=== PATIENT | female | born 1990 | race Caucasian/White ===

== ENCOUNTER 2017-07-01 17:18 | Emergency (ER) | payer SELFPAY ==
[~2017-07-01] VITALS: Ht 177.8 cm; Wt 105.7 kg
[~2017-07-01 17:18] MED LIST: AC325T PO; AC500T PO; ACHD5005 PO; ACHYD1T PO; ALPR.25T PO; ALPR0.5T PO; AMOX500C2 PO; AZIT-21; BENZ56AE TP; BSP5T PO; CEPH-38 PO; CLIN300C11 PO; CLON0.5T3 PO; CLON1TAB36; CODE-54 PO; CPR500T PO; CYCL10TA9 PO; DBC1O30 TOP; DICY10CA26 PO; DIPH25TA82 PO; DOXE10CA PO; DVL500TEC; FAMO20TA5 PO; FLUC200T45 PO; FRS325T PO; HYDR-3816 PO; HYDR-757 PO; IBP600T1 PO; IBP800T PO; LEVO500T69 PO; METR500T PO; MTR250T PO; Metronidazole PO; NAPR-243 PO; NITR-65 PO; NITR100C3 PO; ONDA-42 SL; ONDA8TAB6 PO; PREN-115 PO; PREN1TAB14; PREN1TAB14 PO; PREN1TAB39 PO; PS30T PO; TRAM50TA2 PO
--- NOTE | 2017-07-01 18:53 | Diagnostic Imaging Report ---
INDICATION: History of torn tendon and ankle post surgical repair. Tripped over a dog and heard a pop, now unable to bear weight. TECHNIQUE: Three views of the left ankle. CORRELATION STUDY: None. FINDINGS: The bony alignment is anatomic. The talar dome is intact. The ankle mortise is maintained. There is no acute fracture or dislocation. Soft tissues are unremarkable. IMPRESSION: Stable, negative appearance of the left ankle. Dictated by: Dictated on workstation # [id number]
--- NOTE | 2017-07-01 18:53 | Diagnostic Imaging Report ---
INDICATION: Left foot pain, history of previous tendon repair. EXAM: AP, oblique, lateral views of the left foot are obtained. FINDINGS: There is no fracture or acute bony abnormality seen. Joint spaces are unremarkable. IMPRESSION: Negative left foot. Dictated by: Dictated on workstation # [id number]
--- NOTE | 2017-07-01 19:19 | ED Lower Extremity ---
General Chief Complaint: Lower Extremity Stated Complaint: L ANKLE INJ Nursing Triage Note: pt had torn tendon in left ankle. repaired initially in november by dr benitez. pt reports she had 2nd left ankle surgery in april. recently started bearing weight. she tripped over her dog today et felt something pop. reports she cannot bear weight. Nursing Sepsis Screen: No Definite Risk Source: patient Exam Limitations: no limitations History of Present Illness Time seen by provider: 18:15 Initial Comments This 27-year-old woman presents to the emergency room with complaints of left ankle and foot pain after tripping over her dog at home. She was picking up some boxes of clothing when she stepped backward tripping over her dog. She reports her left ankle "snapped" at that time. Patient reports having multiple ankle surgeries over the past year to repair ligaments. She was in a boot and using a scooter until about [address] Benitez is her orthopedic provider. She is tearful. She has not yet taken any medications for this injury. she denies any other injury with this incident. Allergies and Home Medications Allergies Coded Allergies: No Known Drug Allergies (Unverified , 10/06/16) Home Medications Alprazolam 0.5 Mg Tablet, 0.5 MG PO PRN PRN for ANXIETY, (Reported) Hydrocodone/Acetaminophen 1 Each Tablet, 1 EACH PO, (Reported) Hydrocodone/Acetaminophen 1 Each Tablet, 1 EACH PO Q4H PRN for PAIN, #14 Prescribed by: ANTONI FERNANDO on 07/01/171928 Constitutional: no symptoms reported EENTM: no symptoms reported Respiratory: no symptoms reported Cardiovascular: no symptoms reported Gastrointestinal: no symptoms reported Genitourinary: no symptoms reported Musculoskeletal: see HPI Skin: no symptoms reported Psychiatric/Neurological: No Symptoms Reported Past Ramnofy-Bbolzj-Noykyh Hx Patient Social History Alcohol Use: Denies Use Recreational Drug Use: No (SMOKES 1PPD) Smoking Status: Current Everyday Smoker Type Used: Cigarettes Former Smoker/When Quit: April 01, 2014 2nd Hand Smoke Exposure: No Recent Foreign Travel: No Contact w/Someone Who Travel: No Recent Infectious Disease Expo: No Recent Hopitalizations: No Immunizations Up To Date Tetanus Booster (TDap): Less than 5yrs PED Vaccines UTD: Yes Seasonal Allergies Seasonal Allergies: Yes Surgeries HX Surgeries: Yes (6 laproscopic surg, lymphnodectomy) Surgeries: Appendectomy, Gallbladder, Orthopedic (left foot/ankle), Tonsillectomy Respiratory Hx Respiratory Disorders: No Respiratory Disorders: Pneumonia Cardiovascular Hx Cardiac Disorders: No Neurological Hx Neurological Disorders: No Reproductive System Hx Reproductive Disorders: No Sexually Transmitted Disease: No HIV/AIDS: No Female Reproductive Disorders: Menstrual Problems, Endometriosis, Polycystic Ovarian Dis Genitourinary Hx Genitourinary Disorders: No Genitourinary Disorders: Kidney Infection, UTI-Chronic Gastrointestinal Hx Gastrointestinal Disorders: No (OCC REFLUX) Gastrointestinal Disorders: Gall Bladder Disease Musculoskeletal Hx Musculoskeletal Disorders: Yes (left ankle/foot injuries) Musculoskeletal Disorders: Chronic Back Pain Endocrine Hx Endocrine Disorders: No HEENT HX ENT Disorders: No Loss of Vision: Denies Hearing Impairment: Denies Cancer Hx Cancer: No Psychosocial Hx Psychiatric Problems: Yes Behavioral Health Disorders: Anxiety Integumentary HX Skin/Integumentary Disorder: No Blood Transfusions Hx Blood Disorders: No Adverse Reaction to a Blood Tr: No (N/A) Family Medical History Family Medial History: Alcoholism G8 BROTHER Asthma G8 BROTHER Diabetes mellitus 19 FATHER G8 BROTHER Drug abuse G8 BROTHER G8 BROTHER Hypercholesterolemia 19 FATHER Hypertension 19 FATHER G8 BROTHER Thyroid disease 19 MOTHER No Family History of: AIDS Abdominal aortic aneurysm [place]'s disease Alzheimer's disease Aphasia Arthritis Cancer of mouth Cardiovascular disease Cataracts Colon cancer Completed stroke Congenital disease Congenital heart disease Coronary thrombosis Cystic fibrosis Deafness or hearing loss Dementia Dysphasia Fibrocystic disease of breast Gastroenteritis Glaucoma Headache disorder Infertility Kidney disease Myocardial infarction Neoplasm Not obtainable due to adoption Osteoporosis Parkinson's disease Prostate cancer Psychosocial problem Respiratory disorder Seizure disorder Severe allergy Tuberculosis Visual disorder Physical Exam Vital Signs Vital Sign - Last 12Hours 07/01/17 17:55 Temp 97.8 Pulse 95 Resp 18 B/P (MAP) 125/84 Capillary Refill : Less Than 3 Seconds General Appearance: WD/WN, mild distress HEENT: normal ENT inspection Respiratory: no respiratory distress Legs: left leg non-tender, left leg normal inspection, left leg normal range of motion, left leg no evidence of injury Knees: left knee non-tender, left knee normal inspection, left knee normal range of motion, left knee no evidence of injury Ankles: left ankle bone tenderness, left ankle limited range of motion, left ankle pain, left ankle swelling Feet: left foot bone tenderness, left foot limited range of motion, left foot pain, left foot swelling Neurologic/Tendon: normal sensation, normal motor functions, normal tendon functions Neurologic/Psychiatric: pelletizer II-XII nml as tested, no motor/sensory deficits, alert, normal mood/affect, oriented x 3 Skin: normal color, warm/dry Progress/Results/Core Measures Results/Orders My Orders Orders - ANTONI LACKEY MD Foot, Left, 3 Views (07/01/17 18:23) Hydrocodone/Apap 5/325 Tablet (Lortab 5 (07/01/17 19:30) Ondansetron Oral Dissolve Tab (Zofran (07/01/17 19:45) Vital Signs/I&O Vital Sign - Last 12Hours 07/01/17 07/01/17 07/01/17 17:55 19:39 19:39 Temp 97.8 97.8 97.8 Pulse 95 81 Resp 18 18 B/P (MAP) 125/84 Pulse Ox 99 O2 Delivery Room Air Blood Pressure Mean: 98 Progress Note : Progress Note X-rays demonstrated no fractures. Patient was nauseated from pain. Zofran was given. Patient was offered a Toradol injection but declined. Hydrocodone was given as an alternative. Diagnostic Imaging Diagonstic Imaging: Xray Plain Films/CT/US/NM/MRI: other (left foot) Comments x-ray of the left foot the by me and report reviewed. See report below: NAME: [facility]O [facility] REC#: [id number] PT STATUS: REG ER : 1990 PHYSICIAN: ANTONI LACKEY MD ADMIT DATE: 07/01/17/ER Signed Date of Exam: 07/01/17 FOOT, LEFT, 3 VIEWS INDICATION: Left foot pain, history of previous tendon repair. EXAM: AP, oblique, lateral views of the left foot are obtained. FINDINGS: There is no fracture or acute bony abnormality seen. Joint spaces are unremarkable. IMPRESSION: Negative left foot. Dictated by: Dictated on workstation # [id number] Dict: 07/01/171849 Trans: 07/01/171902 Interpreted by: THANH DAO MD Electronically signed by: THANH DAO MD 07/31/17 1903 Diagonstic Imaging: Xray Plain Films/CT/US/NM/MRI: ankle Comments X-ray of the left ankle viewed by me and report reviewed. See report below: NAME: ZEHRA YO [facility] REC#: [id number] PT STATUS: REG ER : 1990 PHYSICIAN: CHARANJIT RUST ADMIT DATE: 07/01/17/ER Draft Date of Exam:07/01/17 ANKLE, LEFT, 3 VIEWS INDICATION: History of torn tendon and ankle post surgical repair. Tripped over a dog and heard a pop, now unable to bear weight. TECHNIQUE: Three views of the left ankle. CORRELATION STUDY: None. FINDINGS: The bony alignment is anatomic. The talar dome is intact. The ankle mortise is maintained. There is no acute fracture or dislocation. Soft tissues are unremarkable. IMPRESSION: Stable, negative appearance of the left ankle. Dictated on workstation # [id number] Dict: 07/01/17 1849 Trans: 07/01/17 1852 [id number] Interpreted by: MERI PARHAM DO Departure Impression Impression: Primary Impression: Left ankle sprain Qualified Codes: S93.402A - Sprain of unspecified ligament of left ankle, initial encounter Additional Impression: Sprain of left foot Qualified Codes: S93.602A - Unspecified sprain of left foot, initial encounter Disposition: HOME, SELF-CARE Condition: Improved Departure-Patient Inst. Decision time for Depature: 19:15 Referrals: BRAXTON ANDERSON DO (PCP/Family) Primary Care Physician JENIFER BENITEZ MD Patient Instructions: Sprain (DC) Add. Discharge Instructions: Rest, icing in 20 minute intervals, elevation, and compressive wrapping should help with pain and swelling. Use your boot to protect the ankle until follow- up with your orthopedic doctor. Keep your appointment this week. Use your scooter or crutches as needed to avoid weightbearing. Use ibuprofen up to 800 mg every 8 hours as needed for pain. Add hydrocodone for pain not controlled by ibuprofen. All discharge instructions reviewed with patient and/or family. Voiced understanding. Scripts Hydrocodone/Acetaminophen (Hydrocodon -Acetaminophen 5-325) 1 Each Tablet 1 EACH PO Q4H Y for PAIN, #14 TAB Prov: ANTONI LACKEY MD 07/01/17 Copy Copies To 1: JENIFER BENITEZ MD, JOSHUA T MD Jul 01, 2017 19:19
[2017-07-01] MEDS ORDERED: HYDR-3812 PO (19:29)
[2017-07-01] MEDS ORDERED: HYDROcodone/APAP 5 MG/325 MG (LORTAB) TAB PO ONE (19:30)
[2017-07-01 19:39] VITALS: BP 131/73
[2017-07-01] MEDS ORDERED: ONDANSETRON 4 MG (ZOFRAN) ORAL DISSOLVE TAB SL ONE (19:45)
== END 2017-07-01 19:39 | disposition home or self-care (01) ==
LOC: EDUNIT# 17:18 → ER 17:20
DX: S93.402A Sprain of unspecified ligament of left ankle, initial encounter (principal); M54.9 Dorsalgia, unspecified; G89.29 Other chronic pain; F41.9 Anxiety disorder, unspecified; F17.210 Nicotine dependence, cigarettes, uncomplicated; Z82.49 Family history of ischemic heart disease and other diseases of the circulatory system; Z90.49 Acquired absence of other specified parts of digestive tract; W01.0XXA Fall on same level from slipping, tripping and stumbling without subsequent striking against object, initial encounter; Y92.009 Unspecified place in unspecified non-institutional (private) residence as the place of occurrence of the external cause
CPT/HCPCS: 73610; 73630; 99283

== ENCOUNTER → 2017-09-27 | Outpatient (CLI) | payer MEDICAID ==
[~2017-09-27] MED LIST changes: +HYDR-3812 PO
--- NOTE | 2017-09-27 17:18 | Diagnostic Imaging Report ---
INDICATION: Pelvic pain. FINDINGS: Uterus measures 8.6 x 5.7 x 4.7 cm and appears nonfocal. No identifiable myometrial mass. The right ovary is obscured from visualization with right pelvic shadowing bowel gas. The left ovary measures 3.1 x 2.6 x 3.0 cm and shows physiologic appearing follicles with no suspicious lesion. Color Doppler flow to the right adnexa appears normal. The endometrium is homogeneous but thickened at 1.2 cm likely owing to the stage of menstrual cycle. IMPRESSION: Obscuration of the right ovary by pelvic bowel gas. No pathological finding at this exam identified. Dictated on workstation # [id number]
== END ==
LOC: RAD 14:34
PROVIDERS: ATTEND Obstetrics & Gynecology
DX: R10.2 Pelvic and perineal pain (principal); N94.19 Other specified dyspareunia; R53.83 Other fatigue; K59.00 Constipation, unspecified; L68.0 Hirsutism; R63.5 Abnormal weight gain; R63.1 Polydipsia; R35.8 Other polyuria
CPT/HCPCS: 76830; 76856

== ENCOUNTER → 2017-11-07 | Outpatient (CLI) | payer MEDICAID ==
[~2017-11-07] MED LIST changes: +GADOBUTROL 15 MMOL/15 ML (GADAVIST) VIAL IV ONE
--- NOTE | 2017-11-07 18:17 | Diagnostic Imaging Report ---
PROCEDURE: MR imaging of the brain with and without contrast. TECHNIQUE: Multiplanar, multisequence MR imaging of the brain was performed with and without contrast. INDICATION: Headache and visual changes for four months. Patient went to eye doctor and was told she has pressure on the optic nerve. FINDINGS: The ventricles and sulci are within normal limits. There is no hydrocephalus. There is no midline shift. There is no intracranial mass, hemorrhage, or extra-axial fluid collection. There are no areas of diffusion restriction appreciated to suggest an acute CVA. The frontal, ethmoid, sphenoid, and maxillary sinuses are clear. The mastoid air cells are clear. There are no abnormal areas of contrast enhancement. The globes and intraorbital structures are unremarkable. The central arterial and dural venous sinus flow voids are preserved. IMPRESSION: Unremarkable MRI brain. Dictated by: Dictated on workstation # [id number]
== END ==
LOC: RAD 17:04
PROVIDERS: ATTEND Nurse Practitioner Family
DX: H53.8 Other visual disturbances (principal); H47.099 Other disorders of optic nerve, not elsewhere classified, unspecified eye; R51 Headache
CPT/HCPCS: 70553

== ENCOUNTER 2018-06-11 10:54 | Outpatient (RCR) | payer MEDICAID ==
[2018-06-10 10:57] VITALS: BP 122/85
[2018-06-10] MEDS: LIDOCAINE 1% INJ 20 ML 20 ML VIAL INJ SCH (11:19)
[2018-06-10] MEDS: cefTRIAXone 1 GM (ROCEPHIN) VIAL IM SCH (11:19)
[~2018-06-11] VITALS: Ht 175.3 cm; Wt 103.4 kg
[~2018-06-11 10:54] MED LIST changes: -GADOBUTROL 15 MMOL/15 ML (GADAVIST) VIAL IV ONE; +HYDR-34 PO; -HYDR-3812 PO; -HYDR-3816 PO; +LIDOCAINE 1% INJ 20 ML 20 ML VIAL ONE
[2018-06-11] MEDS: cefTRIAXone 1 GM (ROCEPHIN) VIAL IM SCH (11:01)
[2018-06-11] MEDS: LIDOCAINE 1% INJ 20 ML 20 ML VIAL INJ SCH (11:01)
[2018-06-11 11:04] VITALS: BP 132/89
== END 2018-06-11 11:23 | disposition home or self-care (01) ==
LOC: SDC 10:54
PROVIDERS: ATTEND Nurse Practitioner Family
DX: H66.93 Otitis media, unspecified, bilateral (principal)
CPT/HCPCS: 96372

== ENCOUNTER → 2018-08-21 | Outpatient (CLI) | payer MEDICAID ==
[~2018-08-21] MED LIST changes: +AMOX-358 PO; +CEFU500T63 PO; -LIDOCAINE 1% INJ 20 ML 20 ML VIAL ONE; +ONDA4TAB8 SL
--- NOTE | 2018-08-21 14:38 | Diagnostic Imaging Report ---
INDICATION: survey. TECHNIQUE: Multiple real-time grayscale images were obtained over the gravid uterus. COMPARISON: None. FINDINGS: There are no prior studies available for comparison. This study was technically difficult due to the patient's body habitus. There is a single live fetus in cephalic presentation. heart motion was noted and a rate of 160 bpm was recorded. There are no abnormalities identified, but the four-chamber heart view is less than optimal. The growth parameters are fairly uniform. The placenta is posterior and there is no previa. The amniotic fluid volume is within normal limits. IMPRESSION: 1. There is a single live fetus of approximately 20 weeks 5 days gestation +/- 1.5 weeks. The EDC is January 03, 2019. 2. There are no abnormalities identified, but the four-chamber heart view is not optimally visualized. I would recommend that a short-term (4-6 week) follow-up exam be performed for further study. 3. The growth parameters are fairly uniform. Biometrical measurements are as follows: Biparietal 4.8 cm, age 20 weeks 3 days. Head circumference 17.7 cm, age 20 weeks 2 days. Abdominal circumference 16.1 cm, age 21 weeks 2 days. Femur length 3.4 cm, age 20 weeks 6 days. Sonographic estimate age: 20 weeks 5 days. Sonographic estimated date of delivery: 01/03/19. Estimated Weight: 387 gm (+/- 56 gm). LMP percentile: 73%. heart rate: 160 beats per minute. number: 1 of 1. Dictated by: Dictated on workstation # [id number]
== END ==
LOC: RAD 10:08
PROVIDERS: ATTEND Obstetrics & Gynecology
DX: Z36.89 Encounter for other specified antenatal screening (principal); Z3A.20 20 weeks gestation of pregnancy
CPT/HCPCS: 76805

== ENCOUNTER → 2018-10-03 | Outpatient (CLI) | payer MEDICAID ==
[~2018-10-03] VITALS: Ht 177.8 cm; Wt 112.0 kg
[~2018-10-03] MED LIST changes: +LIDOCAINE 1% INJ 20 ML 20 ML VIAL INJ ONE; +cefTRIAXone 1,000 MG/2.86 ml vial (IM ONLY) IM ONE
[2018-10-03 12:06] VITALS: BP 121/67
== END ==
LOC: SDC 11:30
PROVIDERS: ATTEND Nurse Practitioner Family
DX: J40 Bronchitis, not specified as acute or chronic (principal); R06.00 Dyspnea, unspecified
CPT/HCPCS: 96372

== ENCOUNTER 2018-10-31 08:36 | Outpatient (CLI) | payer MEDICAID ==
[~2018-10-31] VITALS: Ht 179.1 cm; Wt 117.0 kg
[~2018-10-31 08:36] MED LIST changes: -LIDOCAINE 1% INJ 20 ML 20 ML VIAL INJ ONE; -cefTRIAXone 1,000 MG/2.86 ml vial (IM ONLY) IM ONE
[2018-10-31 09:00] VITALS: BP 134/62
[2018-10-31 09:20] VITALS: BP 120/65
--- NOTE | 2018-10-31 11:11 | Diagnostic Imaging Report ---
INDICATION: Maternal fall. TECHNIQUE: The fetus was observed by the software packager for purposes of a nonstress biophysical profile evaluation. FINDINGS: Intrauterine is currently in a cephalic presentation. The placenta is along the posterior lateral aspect without evidence for previa. cardiac activity at 153 beats per minute. Normal amount of amniotic fluid with an index at 16.14 cm. Biophysical Profile Scoring: breathin Body movement: 2 tone: 2 Amniotic fluid: 2 Total BPP Score: 8/8 IMPRESSION: 1. Normal biophysical profile score. Dictated by: Dictated on workstation # [id number]
[2018-10-31] MEDS ORDERED: FLU QUADRIvalent (5+ YOA) 2018-2019 (AFLURIA) 0.5 ML IM ONE (14:30)
--- NOTE | 2018-11-03 16:33 | Physician Query-Final Dx ---
ROMAIN LINDO 11/03/18 1633: Clinic Account Progress/Dx Physician Query: Please give diagnosis Date of Service Oct 31, 2018 at 08:36 JENIFER MEDINA DO 11/04/18 1027: Clinic Account Progress/Dx DIAGNOSIS: Diagnosis 30 week IUP Fall in ROMAIN LINDO Nov 03, 2018 16:33 JENIFER MEDINA DO Nov 04, 2018 10:27
== END 2018-10-31 13:08 | disposition home or self-care (01) ==
LOC: WSo 08:36 → LDRP 08:38 → WS 12:25 → WSo 13:08
PROVIDERS: ATTEND Obstetrics & Gynecology
DX: Z04.3 Encounter for examination and observation following other accident (principal); Z3A.30 30 weeks gestation of pregnancy
CPT/HCPCS: 76819; 99213

== ENCOUNTER 2018-12-03 13:10 | Outpatient (CLI) | payer MEDICAID ==
[~2018-12-03] VITALS: Ht 179.1 cm; Wt 116.1 kg
--- NOTE | 2018-12-03 13:15 | NUR ---
ZEHRA YO presented to unit via W/C from ED, accompanied by STAFF, with c/o WATER BROKE;CONTRACTIONS. ZEHRA YO weighed, gowned, voided, and to bed. EFHM and TOCO applied, VS taken. ZEHRA YO oriented to bed controls, call light, TV, heat, and A/C controls.
[2018-12-03 13:25] VITALS: BP 142/68
[2018-12-03 13:27] LABS: BILIRUBIN,URINE NEGATIVE (NEGATIVE); CLARITY,URINE SLIGHTLY CLOUDY; COLOR,URINE YELLOW; GLUCOSE, URINE (UA) NEGATIVE (NEGATIVE); KETONES,URINE 1+ (NEGATIVE); LEUKOCYTE ESTERASE ,URINE 2+ (NEGATIVE); NITRITE,URINE NEGATIVE (NEGATIVE); PH,URINE 6 (5-9); PROTEIN,URINE 2+ (NEGATIVE); UROBILINOGEN,URINE NORMAL (NORMAL)
[2018-12-03 13:53] LABS: BACTERIA,URINE MODERATE /HPF; WBC,URINE 25-50 /HPF
[2018-12-03] MEDS ORDERED: FLU QUADRIvalent (5+ YOA) 2018-2019 (AFLURIA) 0.5 ML IM ONE (14:00)
--- NOTE | 2018-12-03 14:05 | NUR ---
DR MEDINA NOTIFIED OF PATIENT STATUS AND BP, UA RESULTS, AND PATIENT C/O. NEW ORDERS RECEIVED.
[2018-12-03] MEDS ORDERED: D5 LR IV SOLUTION 1,000 ML IV SCH ×2 (14:15)
[2018-12-03 14:30] VITALS: BP 127/70
--- NOTE | 2018-12-03 14:40 | NUR ---
LAB AT BEDSIDE.
[2018-12-03 14:57] LABS: BASOPHILS % (AUTO) 0 % (0-10); EOSINOPHILS # (AUTO) 0.1 10^3/uL (0.0-0.3); EOSINOPHILS % (AUTO) 1 % (0-10); HEMATOCRIT 32 % (35-52); HEMOGLOBIN 10.6 G/DL (11.5-16.0); LYMPHOCYTES # (AUTO) 1.6 X 10^3 (1.0-4.0); LYMPHOCYTES % (AUTO) 11 % (12-44); MEAN CORPUSCULAR HEMOGLOBIN 31 PG (25-34); MEAN CORPUSCULAR HGB CONC 33 G/DL (32-36); MEAN CORPUSCULAR VOLUME 93 FL (80-99); MONOCYTES # (AUTO) 0.7 X 10^3 (0.0-1.0); MONOCYTES % (AUTO) 5 % (0-12); NEUTROPHILS # (AUTO) 12.2 X 10^3 (1.8-7.8); NEUTROPHILS % (AUTO) 84 % (42-75); PLATELET COUNT 437 10^3/uL (130-400); RED BLOOD COUNT 3.46 10^6/uL (4.35-5.85); RED CELL DISTRIBUTION WIDTH 13.1 % (10.0-14.5); WHITE BLOOD COUNT 14.6 10^3/uL (4.3-11.0)
[2018-12-03 15:12] LABS: BAND NEUTROPHILS 3 %; BASOPHILS % (MANUAL) 0 %; EOSINOPHILS % (MANUAL) 1 %; LYMPHOCYTES % (MANUAL) 13 %; MONOCYTES % (MANUAL) 4 %; NEUTROPHILS % (MANUAL) 79 %; RBC MORPH NORMAL
[2018-12-03 15:21] LABS: ALANINE AMINOTRANSFERASE 10 U/L (0-55); ALBUMIN 3.3 GM/DL (3.2-4.5); ALKALINE PHOSPHATASE 81 U/L (40-136); BILIRUBIN,TOTAL 0.3 MG/DL (0.1-1.0); BUN/CREATININE RATIO 13; CARBON DIOXIDE 21 MMOL/L (21-32); CHLORIDE 104 MMOL/L (98-107); CREATININE SERUM 0.61 MG/DL (0.60-1.30); GFR ESTIMATED > 60; GLUCOSE 90 MG/DL (70-105); POTASSIUM 3.9 MMOL/L (3.6-5.0); SODIUM 137 MMOL/L (135-145); TOTAL PROTEIN 6.3 GM/DL (6.4-8.2); URIC ACID 4.3 MG/DL (2.6-7.2)
--- NOTE | 2018-12-03 15:30 | NUR ---
FULIDS DECREASED TO 125ML/HR. 500 CC FLUID BOLUS COMPLETE.
--- NOTE | 2018-12-03 15:50 | NUR ---
DR MEDINA NOTIFIED OF LAB RESULTS. NEW ORDERS RECEIVED.
--- NOTE | 2018-12-03 16:30 | NUR ---
out of WS via ambulation to home self care via private vehicle with d/c instructions in hand.
--- NOTE | 2018-12-08 07:58 | Physician Query-Final Dx ---
SABRA KO 12/08/18 0758: Clinic Account Progress/Dx Physician Query: Please give a diagnosis and include weeks of gestation thank you Date of Service Dec 03, 2018 at 13:10 JENIFER MEDINA DO 12/13/18 1238: Clinic Account Progress/Dx DIAGNOSIS: Diagnosis 35 week IUP UTI SABRA KO Dec 08, 2018 07:58 JENIFER MEDINA DO Dec 13, 2018 12:38
== END 2018-12-03 16:30 | disposition home or self-care (01) ==
LOC: WSo 13:10 → LDRP 13:16 → WSo 16:30
PROVIDERS: ATTEND Obstetrics & Gynecology
DX: O23.43 Unspecified infection of urinary tract in pregnancy, third trimester (principal); Z3A.35 35 weeks gestation of pregnancy
CPT/HCPCS: 36415; 80053; 81000; 82570; 84156; 84550; 85007; 85027; 87077; 87088; 87186; 96360; 96361; 99214

== ENCOUNTER 2018-12-22 09:20 | Outpatient (CLI) | payer MEDICAID ==
[~2018-12-22] VITALS: Ht 179.1 cm; Wt 116.1 kg
--- NOTE | 2018-12-22 09:35 | NUR ---
Arrived to unit via wheelchair from registration by family member. Pt c/o "contractions since 0800." pt breathing with contractions. Wt obtained and to room 318. Gowned and urine sample obtained. to bed and monitors on. Oriented to room, call light and surroundings. bed controls explained.
[2018-12-22 09:40] VITALS: BP 130/80
[2018-12-22] MEDS ORDERED: CEPH-507 PO (09:57)
[2018-12-22] MEDS ORDERED: FLU QUADRIvalent (5+ YOA) 2018-2019 (AFLURIA) 0.5 ML IM ONE (10:00)
--- NOTE | 2018-12-22 10:15 | NUR ---
Dr Rock called and notified of pt arrival, gestation, c/o, assessment, contractions, fhr pattern and sve. Order to watch pt on monitor. plan of care reviewed with pt. saman stanley at bedside.
[2018-12-22 10:30] VITALS: BP 137/72
[2018-12-22 11:00] VITALS: BP 134/80
[2018-12-22 12:00] VITALS: BP 124/68
--- NOTE | 2018-12-22 13:05 | NUR ---
Discharge instructions explained, signed and copy to pt. pt verbalized understanding of instructions and denied questions. Pt discharged to home. Ambulates downstairs to private vehicle with belongings in hand.
== END 2018-12-22 13:05 | disposition home or self-care (01) ==
LOC: WSo 09:20 → LDRP 09:24 → WSo 13:05
PROVIDERS: ATTEND Obstetrics & Gynecology
DX: O47.1 False labor at or after 37 completed weeks of gestation (principal); Z3A.38 38 weeks gestation of pregnancy
CPT/HCPCS: 99213

== ENCOUNTER 2018-12-26 10:29 | Inpatient (IN) | payer MEDICAID | END 2018-12-27 18:05 | disposition home or self-care (01) | LOC: WSo 10:29 → LDRP 10:30 → WSo 14:34 → LDRP 10:50 ==

== ENCOUNTER 2019-03-31 05:40 | Outpatient (CLI) | payer MEDICAID ==
[~2019-03-31] VITALS: Ht 179.1 cm; Wt 105.3 kg
[~2019-03-31 05:40] MED LIST changes: +Benzocaine/Menthol TP; +CEPH-507 PO; +DOCU100C37 PO; +FERR325T18 PO; +IBUP-844 PO; +PNV1TABL67 PO
[2019-03-31] MEDS ORDERED: bcp PO (10:38)
[2019-03-31] MEDS ORDERED: TRAZ-189 PO (10:38)
[2019-03-31] MEDS ORDERED: DESV100T PO (10:38)
== END 2019-03-31 10:45 | disposition home or self-care (01) ==
LOC: PREOP 05:40
PROVIDERS: ATTEND Surgery
DX: Z01.818 Encounter for other preprocedural examination (principal)

== ENCOUNTER 2019-04-02 08:51 | Day surgery (SDC) | payer MEDICAID ==
[~2019-04-02] VITALS: Ht 179.1 cm; Wt 105.3 kg
[2019-04-02] VITALS (10 sets, daily range): BP systolic 113–138; BP diastolic 70–92
[~2019-04-02 08:51] MED LIST changes: +DESV100T PO; +TRAZ-189 PO; +bcp PO
[2019-04-02] MEDS: LACTATED RINGERS 1,000 ML IV PRN ×2 (09:25→11:03)
[2019-04-02] MEDS ORDERED: LIDOCAINE 1% INJ 20 ML 20 ML VIAL ONE (09:32)
[2019-04-02] MEDS ORDERED: BUP/EPI 0.5% 1:200,000 (SENSORCAINE) 30 ML VIAL ONE (09:32)
[2019-04-02] MEDS ORDERED: MIDAZOLAM 2 MG/2 ML (VERSED) VIAL ONE (09:42)
[2019-04-02] MEDS ORDERED: fentaNYL INJECTION 100 MCG/2 ML AMP ONE (09:42)
--- NOTE | 2019-04-02 09:43 | Progress Note-Pre Operative ---
Pre-Operative Progress Note H&P Reviewed The H&P was reviewed, patient examined and no changes noted. Date Seen by Provider: April 02, 2019 Time Seen by Provider: 09:43 Date H&P Reviewed: April 02, 2019 Time H&P Reviewed: 09:43 Pre-Operative Diagnosis: left posterior auricular mass KIAH LEON DO April 02, 2019 09:43
[2019-04-02] MEDS ORDERED: ceFAZolin 2 GM IV Premixed 50 ML IV ONE (09:45)
[2019-04-02] MEDS ORDERED: ceFAZolin 2 GM IV Premixed 50 ML ONE (09:49)
[2019-04-02] MEDS ORDERED: proPOfol 200 MG/20 ML (DIPRIVAN) VIAL IV ONE (10:30)
[2019-04-02] MEDS ORDERED: ONDANSETRON 4 MG/2 ML (SDV) Z0FRAN ONE (10:30)
[2019-04-02] MEDS ORDERED: LIDOCAINE PF 2% 5 ML (XYLOCAINE) VIAL ONE (10:30)
[2019-04-02] MEDS ORDERED: SEVOFLURANE (ULTANE) 15 ML INHAL SOLN ONE (10:30)
--- NOTE | 2019-04-02 10:40 | Progress Note-Post Operative ---
Post-Operative Progess Note Surgeon (s)/Acupressurist (s) Surgeon KIAH LEON DO Acupressurist: na Pre-Operative Diagnosis left posterior auricular mass Post-Operative Diagnosis same Procedure & Operative Findings Date of Procedure 04/02/19 Procedure Performed/Findings excision post auricular mass 1x2 cm Anesthesia Type gen Estimated Blood Loss Estimated blood loss (mL): min Specimens/Packing Specimens Removed mass KIAH LEON DO April 02, 2019 10:40
--- NOTE | 2019-04-02 10:43 | Discharge Inst-Simple/Standard ---
Discharge Inst-Standard Patient Instructions/Follow Up Plan of Care/Instructions/FU: 10-12 days Cathie Activity as Tolerated: Yes Discharge Diet: Regular Diet Other Inst to Patient Follow up Appt: Make appointment for 10-12 days Instructions: No lifting greater than 10 pounds. No strenuous activity. May shower in 24 hours, no tub bath or soaking. Use incentive spirometer at home as directed. No Smoking Skin/Wound Care: Keep area clean and dry. Symptoms to Report: Appetite Changes, Extremity Discoloration, Numbness/Tingling, Swelling Increased , Bleeding Excessive, Eyesight Changes, Pain Increased, Urine Color Change, Constipation(Persistent), Fever over 101 degree F, Pain/Pressure in chest, Urinating Difficulty, Cough Up/Vomit Blood, Heart Beat Irreg/Pounding, Pain/ Pressure in jaw, Vaginal Bleeding Increase, Cramps in feet or legs, Lightheadedness, Pain/Pressure in shoulder, Diarrhea(Persistent), Memory Changes Suddenly, Questions/Concerns, Weight gain consecutive days, Dizziness/ Fainting, Nausea/Vomiting, Shortness of Breath, Weight gain over 2 pounds If questions or concerns contact your physician Or seek help at emergency department. KIAH LEON DO April 02, 2019 10:43
[2019-04-02] MEDS ORDERED: ONDANSETRON 4 MG/2 ML (SDV) Z0FRAN IVP PRN (10:45)
[2019-04-02] MEDS ORDERED: MEPERIDINE (DEMEROL) INJ 50 MG/ML IVP ONE (10:45)
[2019-04-02] MEDS ORDERED: morphine INJ 10 MG/ML 1ML (SYR OR VIAL) IVP ONE (10:45)
[2019-04-02] MEDS ORDERED: morphine INJ 10 MG/ML 1ML (SYR OR VIAL) ONE (10:55)
--- NOTE | 2019-04-02 12:13 | Anesthesia-General Post-Op ---
MAC Patient Condition Mental Status/LOC: Same as Preop Cardiovascular: Satisfactory Nausea/Vomiting: Absent Respiratory: Satisfactory Pain: Controlled Complications: Absent Post Op Complications Complications None Follow Up Care/Instructions Patient Instructions None needed. Anesthesiology Discharge Order Discharge Order Patient is doing well, no complaints, stable vital signs, no apparent adverse anesthesia problems. No complications reported per nursing. AHMET URIBE CRNA April 02, 2019 12:13
--- NOTE | 2019-04-02 18:31 | OPERATIVE REPORT ---
DATE OF SERVICE: 04/02/2019 PREOPERATIVE DIAGNOSIS: Left posterior auricular mass. POSTOPERATIVE DIAGNOSIS: Left posterior auricular mass. PROCEDURE: Excision left posterior auricular mass 1 x 2 cm. SURGEON: Kiah Brand DO ANESTHESIA: General. ESTIMATED BLOOD LOSS: Minimal. COMPLICATIONS: None. INDICATIONS: The patient is a 28-year-old female with a posterior auricular mass. She understands risks and benefits of procedure and wished to proceed with procedure. Consent was signed on the chart. DESCRIPTION OF PROCEDURE: The patient was taken to the operating suite. The area was prepped and draped in sterile fashion. Timeout was performed. Local anesthetic was infiltrated around the mass and a 15 blade scalpel was used to make an elliptical incision around the mass measuring 1 x 2 cm dissect down to the skin and subcutaneous tissues, removing the mass in its entirety in whole. Hemostasis was achieved. The skin was then closed using 5-0 Prolene sutures in a simple interrupted fashion. The area was then washed and dried, sterile bandage was applied. The patient tolerated procedure well without complications, taken to recovery room in stable condition. Job ID: [id number] DocumentID: [id number] Dictated Date: 04/02/2019 13:35:34 Environmental Services Tech Date: 04/02/2019 18:30:16 Dictated By: KIAH BRAND DO
== END 2019-04-02 12:45 | disposition home or self-care (01) ==
LOC: SDC 08:51
PROVIDERS: ATTEND Surgery
DX: L72.0 Epidermal cyst (principal); K21.9 Gastro-esophageal reflux disease without esophagitis; F17.210 Nicotine dependence, cigarettes, uncomplicated; E66.9 Obesity, unspecified; Z68.32 Body mass index [BMI] 32.0-32.9, adult; Z79.899 Other long term (current) drug therapy
CPT/HCPCS: 84703; 87081

== ENCOUNTER 2020-04-05 18:17 | Emergency (ER) | payer SELFPAY ==
[~2020-04-05] VITALS: Ht 177.8 cm; Wt 108.8 kg
[~2020-04-05 18:17] MED LIST changes: -TRAM50TA2 PO; -TRAZ-189 PO; +TRM50T PO; +TRZ50T PO
[2020-04-05] MEDS ORDERED: ALPRAZolam 0.25 MG (XANAX) TAB PO ONE (18:30)
[2020-04-05 18:48] LABS: BASOPHILS % (AUTO) 0 % (0-10); EOSINOPHILS # (AUTO) 0.2 10^3/uL (0.0-0.3); EOSINOPHILS % (AUTO) 1 % (0-10); HEMATOCRIT 42 % (35-52); HEMOGLOBIN 14.2 G/DL (11.5-16.0); LYMPHOCYTES # (AUTO) 2.9 X 10^3 (1.0-4.0); LYMPHOCYTES % (AUTO) 21 % (12-44); MEAN CORPUSCULAR HEMOGLOBIN 30 PG (25-34); MEAN CORPUSCULAR HGB CONC 34 G/DL (32-36); MEAN CORPUSCULAR VOLUME 90 FL (80-99); MEAN PLATELET VOLUME 9.6 FL (7.4-10.4); MONOCYTES # (AUTO) 0.8 X 10^3 (0.0-1.0); MONOCYTES % (AUTO) 6 % (0-12); NEUTROPHILS # (AUTO) 10.1 X 10^3 (1.8-7.8); NEUTROPHILS % (AUTO) 72 % (42-75); PLATELET COUNT 478 10^3/uL (130-400); RED CELL DISTRIBUTION WIDTH 13.4 % (10.0-14.5)
[2020-04-05] MEDS ORDERED: ALPR0.25 PO (18:52)
[2020-04-05] MEDS ORDERED: VENL75TA2 PO (18:52)
--- NOTE | 2020-04-05 18:52 | ED Psychosocial ---
General Chief Complaint: Psych/Social Disorder Stated Complaint: CHEST PAIN,ANXIETY,PANIC ATTACK Source: patient, EMS Exam Limitations: no limitations History of Present Illness Date Seen by Provider: April 05, 2020 Time Seen by Provider: 18:40 Initial Comments To ER by EMS from [facility] in [place] with reports of chest pain. She was they're seeing her therapist when she developed chest pain after becoming anxious. She states she has had anxiety for a long time but it seems to be worse lately. She only takes propranolol for it. Timing/Duration: just prior to arrival Severity: moderate Associated Symptoms: anxiety Allergies and Home Medications Allergies Coded Allergies: No Known Drug Allergies (Unverified , 07/21/18) Home Medications Desvenlafaxine Succinate 100 Mg Tab.er.24h, 100 MG PO DAILY, (Reported) Trazodone HCl 50 Mg Tablet, 50 MG PO HS, (Reported) [bcp] , 1 TAB PO DAILY, (Reported) Patient Home Medication List Home Medication List Reviewed: Yes Review of Systems Constitutional: see HPI EENTM: see HPI Respiratory: no symptoms reported Cardiovascular: no symptoms reported Genitourinary: no symptoms reported Musculoskeletal: no symptoms reported Skin: no symptoms reported Psychiatric/Neurological: See HPI, Anxiety Past Vgtdffd-Bazqom-Wesdns Hx Patient Social History Alcohol Use: Occasionally Uses Recreational Drug Use: Yes (marijuana) Smoking Status: Current Everyday Smoker Type Used: Cigarettes 2nd Hand Smoke Exposure: Yes Recent Foreign Travel: No Contact w/Someone Who Travel: No Recent Hopitalizations: No Immunizations Up To Date Tetanus Booster (TDap): Unknown PED Vaccines UTD: Yes Seasonal Allergies Seasonal Allergies: Yes Past Medical History Surgeries: Yes (6 laproscopic surg, lymphnodectomy, LT ANKLE) Appendectomy, Gallbladder, Orthopedic, Tonsillectomy Respiratory: No Pneumonia Currently Using CPAP: No Currently Using BIPAP: No Cardiac: No Neurological: No Reproductive Disorders: No Female Reproductive Disorders: Menstrual Problems, Endometriosis, Polycystic Ovarian Dis Sexually Transmitted Disease: No HIV/AIDS: No Genitourinary: Yes Kidney Infection, UTI-Chronic Gastrointestinal: Yes (OCC REFLUX) Gastroesophageal Reflux, Gall Bladder Disease Musculoskeletal: Yes (left ankle/foot injuries) Chronic Back Pain Endocrine: No HEENT: No Loss of Vision: Denies Hearing Impairment: Denies Cancer: No Psychosocial: Yes Anxiety, Depression Integumentary: No Blood Disorders: No Adverse Reaction/Blood Tranf: No (N/A) Family Medical History Alcoholism G8 BROTHER Asthma G8 BROTHER Diabetes mellitus 19 FATHER G8 BROTHER Drug abuse G8 BROTHER G8 BROTHER Hypercholesterolemia 19 FATHER Hypertension 19 FATHER G8 BROTHER Thyroid disease 19 MOTHER No Family History of: AIDS Abdominal aortic aneurysm [place]'s disease Alzheimer's disease Aphasia Arthritis Cancer of mouth Cardiovascular disease Cataracts Colon cancer Completed stroke Congenital disease Congenital heart disease Coronary thrombosis Cystic fibrosis Deafness or hearing loss Dementia Dysphasia Fibrocystic disease of breast Gastroenteritis Glaucoma Headache disorder Infertility Kidney disease Myocardial infarction Neoplasm Not obtainable due to adoption Osteoporosis Parkinson's disease Prostate cancer Psychosocial problem Respiratory disorder Seizure disorder Severe allergy Tuberculosis Visual disorder Physical Exam Capillary Refill : Height, Weight, BMI Height: 5'10.50" Weight: 232lbs. 0.6oz. [id number]; 32.8 BMI Method:Stated General Appearance: WD/WN, no apparent distress, other (and tearful, hyperventilating) Neck: non-tender, full range of motion Respiratory: no respiratory distress Cardiovascular: regular rate, rhythm, no murmur Gastrointestinal: normal bowel sounds, non tender, soft Neurologic/Psychiatric: alert, normal mood/affect, oriented x 3 Appearance/Memory: appropriate appearance, appropriate insight Thoughts/Hallucinations: normal thought pattern, no apparent hallucination Skin: normal color, warm/dry Progress/Results/Core Measures Results/Orders Lab Results Laboratory Tests Test 04/05/20 18:35 Range/Units My Orders Orders - JOSE R MENDEZ APRN Troponin I (04/05/20 18:22) Fibrin Degradation Products (04/05/20 18:22) Hcg,Qualitative Serum (04/05/20 18:22) Cbc With Automated Diff (04/05/20 18:22) Comprehensive Metabolic Panel (04/05/20 18:22) Ua Culture If Indicated (04/05/20 18:22) Drug Screen Stat (Urine) (04/05/20 18:22) Alprazolam Tablet (Xanax Tablet) (04/05/20 18:30) Ekg Tracing (04/05/20 18:44) Lipase (04/05/20 18:44) Medications Given in ED Current Medications Medications Dose Ordered Sig/Diamond Route Start Time Stop Time Status Last Admin Dose Admin Alprazolam 0.25 mg ONCE ONCE PO 04/05/20 18:30 04/05/20 18:31 DC 04/05/20 18:29 0.25 MG Departure Impression Primary Impression: Anxiety Disposition: 01 HOME, SELF-CARE Condition: Stable Departure-Patient Inst. Decision time for Depature: 18:49 Referrals: JENIFER MEDINA DO (PCP/Family) Primary Care Physician Patient Instructions: Panic Disorder (DC) Add. Discharge Instructions: 1. Medication as directed. Return to ER for any concerns. Follow-up with your doctor next week. All discharge instructions reviewed with patient and/or family. Voiced un derstanding. Scripts Venlafaxine HCl (Venlafaxine HCl ER) 75 Mg Tab.er.24 75 MG PO DAILY, #30 TAB Prov: JOSE R MENDEZ APRN 04/05/20 JOSE R MENDEZ APRN April 05, 2020 18:51
[2020-04-05 19:01] LABS: ALBUMIN 4.5 GM/DL (3.2-4.5); CHLORIDE 103 MMOL/L (98-107); POTASSIUM 3.7 MMOL/L (3.6-5.0); SODIUM 137 MMOL/L (135-145)
[2020-04-05 19:02] LABS: CALCIUM 10.1 MG/DL (8.5-10.1)
[2020-04-05 19:03] LABS: GLUCOSE 93 MG/DL (70-105); TOTAL PROTEIN 7.5 GM/DL (6.4-8.2)
[2020-04-05 19:04] LABS: CARBON DIOXIDE 20 MMOL/L (21-32)
[2020-04-05 19:05] LABS: BILIRUBIN,TOTAL 0.2 MG/DL (0.1-1.0)
[2020-04-05 19:07] LABS: ALKALINE PHOSPHATASE 77 U/L (40-136); CREATININE SERUM 0.79 MG/DL (0.60-1.30); GFR ESTIMATED > 60
[2020-04-05 19:08] LABS: BUN/CREATININE RATIO 15
[2020-04-05 19:10] LABS: ALANINE AMINOTRANSFERASE 25 U/L (0-55)
--- NOTE | 2020-04-05 19:36 | NUR ---
report given to Jean to assume care of pt at this time
[2020-04-05 20:16] VITALS: BP 122/89
== END 2020-04-05 20:17 | disposition home or self-care (01) ==
LOC: EDUNIT# 18:17 → ER 18:19
DX: F41.9 Anxiety disorder, unspecified (principal); F32.9 Major depressive disorder, single episode, unspecified; F17.210 Nicotine dependence, cigarettes, uncomplicated; Z82.49 Family history of ischemic heart disease and other diseases of the circulatory system
CPT/HCPCS: 36415; 80053; 83690; 84484; 84703; 85025; 85379; 93005

== ENCOUNTER 2021-01-27 08:44 | Emergency (ER) | payer SELFPAY ==
[~2021-01-27] VITALS: Ht 177 cm; Wt 120.0 kg
[~2021-01-27 08:44] MED LIST changes: +ALPR0.25 PO; -CLIN300C11 PO; +CLIN300C12 PO; +VENL75TA2 PO
--- NOTE | 2021-01-27 08:52 | ED Integumentary General ---
General Stated Complaint: CYST ON TAILBONE Source: patient Exam Limitations: no limitations History of Present Illness Date Seen by Provider: Jan 27, 2021 Time Seen by Provider: 08:51 Initial Comments 30-year-old female presents with abscess to the right side of her gluteal cleft. Patient reports that has been there for about a week. That 3 days ago she was seen by her primary care provider and started on amoxicillin. States that she had an appointment with a "[facility] surgeon this morning" and that they told her to come to the ER because we have better medication to treat it. Patient reports that she has difficulty standing or setting due to the abscess. She reports a significant amount of pain. She denies any nausea vomiting fevers or chills. Allergies and Home Medications Allergies Coded Allergies: No Known Drug Allergies (Unverified , 07/21/18) Home Medications Alprazolam 0.25 Mg Tablet, 0.25 MG PO BID PRN for ANXIETY Prescribed by: JOSE R MENDEZ on 04/05/201852 Desvenlafaxine Succinate 100 Mg Tab.er.24h, 100 MG PO DAILY, (Reported) Hydrocodone/Acetaminophen 1 Each Tablet, 1 TAB PO Q8H PRN for PAIN-MODERATE (5- 7) . Prescribed by: CHLOÉ LAURA on 01/27/21 1014 Sulfamethoxazole/Trimethoprim 1 Each Tablet, 1 EACH PO BID . Prescribed by: CHLOÉ LAURA on 01/27/21 1013 Trazodone HCl 50 Mg Tablet, 50 MG PO HS, (Reported) Venlafaxine HCl 75 Mg Tab.er.24, 75 MG PO DAILY Prescribed by: JOSE R MENDEZ on 04/05/20 185 [bcp] , 1 TAB PO DAILY, (Reported) Patient Home Medication List Home Medication List Reviewed: Yes Review of Systems Review of Systems Constitutional: No chills; fever Respiratory: no symptoms reported Cardiovascular: no symptoms reported Gastrointestinal: no symptoms reported Musculoskeletal: no symptoms reported Skin: see HPI Psychiatric/Neurological: No Symptoms Reported Endocrine: No Symptoms Reported Past Kmbekfl-Xnluws-Jbhnaz Hx Past Med/Social Hx: Reviewed Nursing Past Med/Soc Hx Patient Social History Type Used: Cigarettes 2nd Hand Smoke Exposure: Yes Recent Hopitalizations: No Immunizations Up To Date Tetanus Booster (TDap): Unknown PED Vaccines UTD: Yes Seasonal Allergies Seasonal Allergies: Yes Past Medical History Surgeries: Yes (6 laproscopic surg, lymphnodectomy, LT ANKLE) Appendectomy, Gallbladder, Orthopedic, Tonsillectomy Respiratory: No Pneumonia Currently Using CPAP: No Currently Using BIPAP: No Cardiac: No Neurological: No Reproductive Disorders: No Female Reproductive Disorders: Menstrual Problems, Endometriosis, Polycystic Ovarian Dis Sexually Transmitted Disease: No HIV/AIDS: No Genitourinary: Yes Kidney Infection, UTI-Chronic Gastrointestinal: Yes (OCC REFLUX) Gastroesophageal Reflux, Gall Bladder Disease Musculoskeletal: Yes (left ankle/foot injuries) Chronic Back Pain Endocrine: No HEENT: No Loss of Vision: Denies Hearing Impairment: Denies Cancer: No Psychosocial: Yes Anxiety, Depression Integumentary: No Blood Disorders: No Adverse Reaction/Blood Tranf: No (N/A) Family Medical History Alcoholism G8 BROTHER Asthma G8 BROTHER Diabetes mellitus 19 FATHER G8 BROTHER Drug abuse G8 BROTHER G8 BROTHER Hypercholesterolemia 19 FATHER Hypertension 19 FATHER G8 BROTHER Thyroid disease 19 MOTHER No Family History of: AIDS Abdominal aortic aneurysm [place]'s disease Alzheimer's disease Aphasia Arthritis Cancer of mouth Cardiovascular disease Cataracts Colon cancer Completed stroke Congenital disease Congenital heart disease Coronary thrombosis Cystic fibrosis Deafness or hearing loss Dementia Dysphasia Fibrocystic disease of breast Gastroenteritis Glaucoma Headache disorder Infertility Kidney disease Myocardial infarction Neoplasm Not obtainable due to adoption Osteoporosis Parkinson's disease Prostate cancer Psychosocial problem Respiratory disorder Seizure disorder Severe allergy Tuberculosis Visual disorder Physical Exam Vital Signs Vital Signs - First Documented 01/27/21 01/27/21 09:07 11:06 Temp 37.0 Pulse 110 Resp 20 B/P (MAP) 127/94 (105) Pulse Ox 97 O2 Delivery Room Air Capillary Refill : General Appearance: moderate distress, obese Cardiovascular: normal peripheral pulses, regular rate, rhythm Respiratory: lungs clear, normal breath sounds Gastrointestinal: non tender, soft Neurologic/Psychiatric: alert, normal mood/affect, oriented x 3 Skin Problem Character: abscess (right gluteal cleft ) Procedures/Interventions I&D : Blade Size: 11 I & D Procedure: betadine prep Packing/Drain: Idoform 12/03 Progress Patient tolerated well, with no immediate complication Progress/Results/Core Measures Results/Orders Lab Results Laboratory Tests Test 01/27/21 09:26 Range/Units White Blood Count 15.6 H 4.3-11.0 10^3/uL Red Blood Count 4.17 3.80-5.11 10^6/uL Hemoglobin 12.7 11.5-16.0 g/dL Hematocrit 38 35-52 % Mean Corpuscular Volume 92 80-99 fL Mean Corpuscular Hemoglobin 31 25-34 pg Mean Corpuscular Hemoglobin Concent 33 32-36 g/dL Red Cell Distribution Width 13.0 10.0-14.5 % Platelet Count 468 H 130-400 10^3/uL Mean Platelet Volume 9.4 9.0-12.2 fL Immature Granulocyte % (Auto) 0 % Neutrophils (%) (Auto) 81 H 42-75 % Lymphocytes (%) (Auto) 11 L 12-44 % Monocytes (%) (Auto) 6 0-12 % Eosinophils (%) (Auto) 1 0-10 % Basophils (%) (Auto) 0 0-10 % Neutrophils # (Auto) 12.6 H 1.8-7.8 10^3/uL Lymphocytes # (Auto) 1.8 1.0-4.0 10^3/uL Monocytes # (Auto) 1.0 0.0-1.0 10^3/uL Eosinophils # (Auto) 0.2 0.0-0.3 10^3/uL Basophils # (Auto) 0.1 0.0-0.1 10^3/uL Immature Granulocyte # (Auto) 0.1 0.0-0.1 10^3/uL Neutrophils % (Manual) 79 % Lymphocytes % (Manual) 15 % Monocytes % (Manual) 5 % Eosinophils % (Manual) 1 % Basophils % (Manual) 0 % Band Neutrophils 0 % Blood Morphology Comment NORMAL Sodium Level 138 135-145 MMOL/L Potassium Level 3.7 3.6-5.0 MMOL/L Chloride Level 105 98-107 MMOL/L Carbon Dioxide Level 23 21-32 MMOL/L Anion Gap 10 5-14 MMOL/L Blood Urea Nitrogen 10 7-18 MG/DL Creatinine 0.82 0.60-1.30 MG/DL Estimat Glomerular Filtration Rate > 60 BUN/Creatinine Ratio 12 Glucose Level 143 H 70-105 MG/DL Calcium Level 8.9 8.5-10.1 MG/DL My Orders Orders - LAURA,CHLOÉ L DO Basic Metabolic Panel (01/27/21 09:11) Cbc With Automated Diff (01/27/21 09:11) Wound Culture (01/27/21 09:11) Ceftriaxone For Iv Use (Rocephin For I (01/27/21 09:15) Vancomycin Injection (Vancomycin Injecti (01/27/21 09:15) Fentanyl Injection (Sublimaze Injection (01/27/21 09:11) Lidocaine/Epi 2% 1:100,000 (Xylocaine/Ep (01/27/21 09:30) Manual Differential (01/27/21 09:26) Fentanyl Injection (Sublimaze Injection (01/27/21 10:00) Medications Given in ED Current Medications Medications Dose Ordered Sig/Diamond Route Start Time Stop Time Status Last Admin Dose Admin Ceftriaxone Sodium 1000 mg/ Sterile Water 10 ml @ 200 mls/hr ONCE ONCE IV 01/27/21 09:15 01/27/21 09:17 DC 01/27/21 09:31 200 MLS/HR Fentanyl Citrate 100 mcg ONCE PRN IVP 01/27/21 10:00 01/27/21 11:06 DC 01/27/21 09:57 100 MCG Lidocaine/ Epinephrine 20 ml ONCE ONCE INJ 01/27/21 09:30 01/27/21 09:31 DC 01/27/21 09:58 20 ML Vancomycin HCl 1000 mg/Sodium Chloride 250 ml @ 250 mls/hr ONCE ONCE IV 01/27/21 09:15 01/27/21 10:14 DC 01/27/21 09:35 250 MLS/HR Vital Signs/I&O 01/27/21 01/27/21 09:07 11:06 Temp 37.0 Pulse 110 86 Resp 20 17 B/P (MAP) 127/94 (105) 127/105 Pulse Ox 97 98 O2 Delivery Room Air Progress Progress Note : Progress Note Patient with large abscess on her right gluteal cleft. Patient tolerated I&D well. There was packing placed. She was started on Bactrim in addition to amoxicillin. Recommend warm compresses. She should follow-up with her primary care provider Saturday or Saturday for recheck of symptoms. Return to the ER over the weekend as needed Departure Impression Primary Impression: Abscess, gluteal cleft Disposition: 01 HOME, SELF-CARE Condition: Stable Departure-Patient Inst. Referrals: [facility][1[facility]K (PCP) Primary Care Physician JOHANN MENDES APRN (Family) Primary Care Physician CHEY MERCADO DO Patient Instructions: Abscess Incision and Drainage, Wound Care (DC) Add. Discharge Instructions: Follow-up on Saturday or Saturday with your primary care provider for wound recheck Use warm compresses to help drain Scripts Hydrocodone/Acetaminophen (Hydrocodone-Acetamin 5-325 mg) 1 Each Tablet 1 TAB PO Q8H PRN for PAIN-MODERATE (5-7), #8 TAB . Prov: CHLOÉ LAURA DO 01/27/21 Sulfamethoxazole/Trimethoprim (Bactrim Ds Tablet) 1 Each Tablet 1 EACH PO BID, #20 TAB . Prov: CHLOÉ LAURA DO 01/27/21 CHLOÉ LAURA DO Jan 27, 2021 08:52
[2021-01-27] MEDS ORDERED: fentaNYL INJECTION 100 MCG/2 ML AMP IVP STA (09:11)
[2021-01-27] MEDS ORDERED: cefTRIAXone FOR IV USE 1,000 MG in WATER (STERILE) FOR INJECTION 10 ML IV ONE (09:15)
[2021-01-27] MEDS ORDERED: VANCOMYCIN INJECTION 1,000 MG in NS (IVPB) 250 ML IV ONE (09:15)
[2021-01-27] MEDS ORDERED: LIDOCAINE/EPI 2% 1:100,00 (XYLOCAINE) 20 ML VIAL INJ ONE (09:30)
[2021-01-27 09:31] LABS: BASOPHILS # (AUTO) 0.1 10^3/uL (0.0-0.1); BASOPHILS % (AUTO) 0 % (0-10); EOSINOPHILS # (AUTO) 0.2 10^3/uL (0.0-0.3); EOSINOPHILS % (AUTO) 1 % (0-10); HEMATOCRIT 38 % (35-52); HEMOGLOBIN 12.7 g/dL (11.5-16.0); LYMPHOCYTES # (AUTO) 1.8 10^3/uL (1.0-4.0); LYMPHOCYTES % (AUTO) 11 % (12-44); MEAN CORPUSCULAR HEMOGLOBIN 31 pg (25-34); MEAN CORPUSCULAR HGB CONC 33 g/dL (32-36); MEAN CORPUSCULAR VOLUME 92 fL (80-99); MEAN PLATELET VOLUME 9.4 fL (9.0-12.2); MONOCYTES % (AUTO) 6 % (0-12); NEUTROPHILS # (AUTO) 12.6 10^3/uL (1.8-7.8); NEUTROPHILS % (AUTO) 81 % (42-75); PLATELET COUNT 468 10^3/uL (130-400); WHITE BLOOD COUNT 15.6 10^3/uL (4.3-11.0)
[2021-01-27 09:43] LABS: CHLORIDE 105 MMOL/L (98-107); POTASSIUM 3.7 MMOL/L (3.6-5.0); SODIUM 138 MMOL/L (135-145)
[2021-01-27 09:45] LABS: CALCIUM 8.9 MG/DL (8.5-10.1); GLUCOSE 143 MG/DL (70-105)
[2021-01-27 09:47] LABS: CARBON DIOXIDE 23 MMOL/L (21-32)
[2021-01-27 09:49] LABS: CREATININE SERUM 0.82 MG/DL (0.60-1.30); GFR ESTIMATED > 60
[2021-01-27 09:50] LABS: BUN/CREATININE RATIO 12
[2021-01-27 09:59] LABS: BAND NEUTROPHILS 0 %; BASOPHILS % (MANUAL) 0 %; EOSINOPHILS % (MANUAL) 1 %; LYMPHOCYTES % (MANUAL) 15 %; MONOCYTES % (MANUAL) 5 %; NEUTROPHILS % (MANUAL) 79 %; RBC MORPH NORMAL
[2021-01-27] MEDS ORDERED: fentaNYL INJECTION 100 MCG/2 ML AMP IVP PRN (10:00)
[2021-01-27] MEDS ORDERED: SULF1TAB35 PO ×2 (10:00→10:13)
[2021-01-27] MEDS ORDERED: ACHD5005 PO ×2 (10:00→10:13)
[2021-01-27 11:06] VITALS: BP 127/105
== END 2021-01-27 11:06 | disposition home or self-care (01) ==
LOC: EDUNIT# 08:44 → ER 08:45
DX: L02.31 Cutaneous abscess of buttock (principal); E66.9 Obesity, unspecified; F41.9 Anxiety disorder, unspecified; F32.9 Major depressive disorder, single episode, unspecified; G89.29 Other chronic pain; M54.9 Dorsalgia, unspecified; Z83.3 Family history of diabetes mellitus; Z82.49 Family history of ischemic heart disease and other diseases of the circulatory system; Z77.22 Contact with and (suspected) exposure to environmental tobacco smoke (acute) (chronic); Z79.891 Long term (current) use of opiate analgesic
CPT/HCPCS: 10060; 36415; 45020; 80048; 85007; 85027; 87070; 87077; 87205

== ENCOUNTER 2021-09-27 05:41 | Outpatient (CLI) | payer OTHER ==
[~2021-09-27] VITALS: Ht 177.8 cm; Wt 126.8 kg
[~2021-09-27 05:41] MED LIST changes: +CLIN-144 PO; -CLIN300C12 PO; +SULF1TAB38 PO
[2021-09-27] MEDS ORDERED: CEPH500T PO (09:49)
[2021-09-27] MEDS ORDERED: ACET-2267 PO (09:49)
[2021-09-27] MEDS ORDERED: IBUP-1773 PO (09:49)
[2021-09-28] MEDS ORDERED: DOCU-143 PO (12:37)
[2021-09-28] MEDS ORDERED: ACHD5005 PO (12:37)
== END 2021-09-27 10:56 | disposition home or self-care (01) ==
LOC: PREOP 05:41
PROVIDERS: ATTEND Surgery
DX: Z01.818 Encounter for other preprocedural examination (principal)

== ENCOUNTER 2021-09-28 10:28 | Day surgery (SDC) | payer OTHER ==
[~2021-09-28] VITALS: Ht 177.8 cm; Wt 126.8 kg
[2021-09-28] VITALS (11 sets, daily range): BP systolic 117–168; BP diastolic 58–99
[~2021-09-28 10:28] MED LIST changes: +ACET-2267 PO; +CEPH500T PO; +IBUP-1773 PO
[2021-09-28] MEDS ORDERED: ceFAZolin 2 GM IV Premixed 50 ML ONE (10:42)
--- NOTE | 2021-09-28 10:56 | Progress Note-Pre Operative ---
Pre-Operative Progress Note H&P Reviewed The H&P was reviewed, patient examined and no changes noted. Date Seen by Provider: Sep 28, 2021 Time Seen by Provider: 10:56 Date H&P Reviewed: Sep 28, 2021 Time H&P Reviewed: 10:56 Pre-Operative Diagnosis: bilateral hydradenitis KIAH LEON DO Sep 28, 2021 10:56
[2021-09-28] MEDS ORDERED: LACTATED RINGERS 1,000 ML IV PRN (11:15)
[2021-09-28] MEDS ORDERED: ceFAZolin 2 GM IV Premixed 50 ML IV ONE (11:15)
[2021-09-28] MEDS ORDERED: ACHD5005 PO (12:37)
[2021-09-28] MEDS ORDERED: DOCU-143 PO (12:37)
--- NOTE | 2021-09-28 12:41 | Discharge Inst-Simple/Standard ---
Discharge Inst-Standard Discharge Medications New, Converted or Re-Newed RX: Transmitted to Pharmacy Patient Instructions/Follow Up Plan of Care/Instructions/FU: Cathie nurse visit tomorrow. Have someone with you to teach how to do wound packing. Cathie 2 weeks. Wound care clinic appointment for possible wound vac placement next week. Activity as Tolerated: No Discharge Diet: Regular Diet Other Inst to Patient Follow up Appt: Make appointment for tomorrow for Dr. Brand's nurse to teach you and someone how to do wound care. Cathie 2 week follow up appointment. Wound care clinic appointment for possible wound vac placement. Instructions: No lifting greater than 10 pounds. No strenuous activity. May shower in 24 hours, no tub bath or soaking. Shower prior to having wound care performed. Use incentive spirometer at home as directed. No Smoking Skin/Wound Care: Keep areas clean and dry. Need daily wound changes, irrigate with saline and pack wet to dry with betadine Kerlex. Will set up with wound care for possible wound vac placement outpatient. Symptoms to Report: Appetite Changes, Extremity Discoloration, Numbness/Tingling, Swelling Increased, Bleeding Excessive, Eyesight Changes, Pain Increased, Urine Color Change, Constipation(Persistent), Fever over 101 degree F, Pain/Pressure in ches t, Urinating Difficulty, Cough Up/Vomit Blood, Heart Beat Irreg/Pounding, Pain/Pressure in jaw, Vaginal Bleeding Increase, Cramps in feet or legs, Lightheadedness, Pain/Pressure in shoulder, Diarrhea(Persistent), Memory Changes Suddenly, Questions/Concerns, Weight gain consecutive days, Dizziness/Fainting, Nausea/Vomiting, Shortness of Breath, Weight gain over 2 pounds If questions or concerns contact your physician Or seek help at emergency department. KIAH BRAND DO Sep 28, 2021 12:41
[2021-09-28] MEDS ORDERED: ONDANSETRON 4 MG/2 ML (SDV) Z0FRAN IVP PRN (13:00)
[2021-09-28] MEDS ORDERED: fentaNYL INJ 100 MCG/2 ML AMP IVP ONE (13:00)
[2021-09-28] MEDS ORDERED: HYDROmorphone 2 MG/ML VIAL (DILAUDID) IV ONE (13:00)
--- NOTE | 2021-09-28 14:15 | OPERATIVE REPORT ---
DATE OF SERVICE: 09/28/2021 PREOPERATIVE DIAGNOSIS: Bilateral hidradenitis. POSTOPERATIVE DIAGNOSIS: Bilateral hidradenitis. PROCEDURES PERFORMED: Excision of bilateral hidradenitis, skin and subcutaneous tissue, right side, 13 x 9 cm, left side 13 x 7 cm. SURGEON: Kiah Brand DO. ANESTHESIA: General. ESTIMATED BLOOD LOSS: Minimal. COMPLICATIONS: None. INDICATIONS FOR PROCEDURE: The patient is a 31-year-old female with a longstanding hidradenitis bilaterally. She continued to have issues despite medical management. She understands the risks and benefits of procedure and wishes to proceed. Consent was signed in the chart. DESCRIPTION OF PROCEDURE: The patient was taken to the operating suite. She was prepped and draped in a sterile fashion. A timeout was performed. Local anesthetic was infiltrated in the right axilla around the area to be excised. A 15 blade scalpel was used to make a skin incision and then cautery was used to remove skin and inflamed subcutaneous tissue overall measuring 13 x 9 cm. Once removed, the wound was irrigated and hemostasis was achieved. The wound was packed with Betadine soaked Kerlix and sterile bandage was applied. Attention was then placed to the left axilla, which local anesthetic was infiltrated and a 15-blade scalpel was used to make a skin incision 13 x 7 cm around the pathological skin. Cautery was used to dissect down through the skin and subcutaneous tissues, an area of 13 x 7 cm skin and subcutaneous tissue was removed. Hemostasis was achieved. The wound was irrigated and packed with Betadine-soaked Kerlix wet to dry and a sterile bandage was applied. The patient tolerated the procedure well without any complications and taken to the recovery room in stable condition. Job ID: [id number] DocumentID: [id number] Dictated Date: 09/28/2021 12:44:54 Water Registrar Date: 09/28/2021 14:14:30 Dictated By: KIAH BRAND DO
[2021-09-28] MEDS ORDERED: HYDROcodone/APAP 5 MG/325 MG (LORTAB) TAB ONE (14:51)
[2021-09-28] MEDS ORDERED: HYDROcodone/APAP 5 MG/325 MG (LORTAB) TAB PO ONE (15:00)
[2021-10-04] MEDS ORDERED: ACHD5005 PO (14:42)
== END 2021-09-28 15:25 ==
LOC: SDC 10:28
PROVIDERS: ATTEND Surgery
DX: L73.2 Hidradenitis suppurativa (principal); J45.909 Unspecified asthma, uncomplicated; K21.9 Gastro-esophageal reflux disease without esophagitis; F17.210 Nicotine dependence, cigarettes, uncomplicated; Z90.49 Acquired absence of other specified parts of digestive tract; Z90.89 Acquired absence of other organs
CPT/HCPCS: 84703; 87081

== ENCOUNTER → 2021-10-02 | Outpatient (CLI) | payer OTHER ==
[~2021-10-02] MED LIST changes: +DOCU-143 PO
[2021-10-02 10:49] LABS: BASOPHILS # (AUTO) 0.1 10^3/uL (0.0-0.1); BASOPHILS % (AUTO) 0 % (0-10); EOSINOPHILS # (AUTO) 0.5 10^3/uL (0.0-0.3); EOSINOPHILS % (AUTO) 3 % (0-10); HEMATOCRIT 40 % (35-52); HEMOGLOBIN 13.2 g/dL (11.5-16.0); LYMPHOCYTES # (AUTO) 2.3 10^3/uL (1.0-4.0); LYMPHOCYTES % (AUTO) 15 % (12-44); MEAN CORPUSCULAR HEMOGLOBIN 30 pg (25-34); MEAN CORPUSCULAR HGB CONC 33 g/dL (32-36); MEAN CORPUSCULAR VOLUME 92 fL (80-99); MEAN PLATELET VOLUME 9.2 fL (9.0-12.2); MONOCYTES # (AUTO) 1.2 10^3/uL (0.0-1.0); MONOCYTES % (AUTO) 8 % (0-12); NEUTROPHILS # (AUTO) 11.6 10^3/uL (1.8-7.8); NEUTROPHILS % (AUTO) 74 % (42-75); PLATELET COUNT 515 10^3/uL (130-400); WHITE BLOOD COUNT 15.7 10^3/uL (4.3-11.0)
[2021-10-02 11:09] LABS: ALBUMIN 3.9 GM/DL (3.2-4.5); BILIRUBIN,TOTAL 0.2 MG/DL (0.1-1.0); CREATININE SERUM 0.73 MG/DL (0.60-1.30); POTASSIUM 4.4 MMOL/L (3.6-5.0); TOTAL PROTEIN 7.1 GM/DL (6.4-8.2)
[2021-10-02 11:15] LABS: BAND NEUTROPHILS 0 %; BASOPHILS % (MANUAL) 0 %; EOSINOPHILS % (MANUAL) 3 %; LYMPHOCYTES % (MANUAL) 14 %; MONOCYTES % (MANUAL) 3 %; NEUTROPHILS % (MANUAL) 80 %
[2021-10-02 11:16] LABS: RBC MORPH NORMAL
== END ==
LOC: LAB 10:18
PROVIDERS: ATTEND Family Medicine
DX: T81.31XA Disruption of external operation (surgical) wound, not elsewhere classified, initial encounter (principal)
CPT/HCPCS: 36415; 80053; 83036; 85007; 85025; 85027

== ENCOUNTER → 2021-10-02 | Outpatient (CLI) | payer OTHER | LOC: WOUNDCARE 09:09 | PROVIDERS: ATTEND Family Medicine | DX: L02.411 Cutaneous abscess of right axilla (principal); L02.412 Cutaneous abscess of left axilla; T81.31XA Disruption of external operation (surgical) wound, not elsewhere classified, initial encounter; T65.292A Toxic effect of other tobacco and nicotine, intentional self-harm, initial encounter | CPT/HCPCS: 99214 ==

== ENCOUNTER → 2021-10-09 | Outpatient (CLI) | payer OTHER | LOC: WOUNDCARE 10:01 | PROVIDERS: ATTEND Family Medicine | DX: L02.411 Cutaneous abscess of right axilla (principal); I96 Gangrene, not elsewhere classified; L02.412 Cutaneous abscess of left axilla; T81.31XA Disruption of external operation (surgical) wound, not elsewhere classified, initial encounter; T65.222A Toxic effect of tobacco cigarettes, intentional self-harm, initial encounter | CPT/HCPCS: 87070; 87077; 87205; G0463; 99214 ==

== ENCOUNTER → 2021-10-19 | Outpatient (CLI) | payer OTHER | LOC: WOUNDCARE 09:15 | PROVIDERS: ATTEND Family Medicine | DX: L02.412 Cutaneous abscess of left axilla (principal); I96 Gangrene, not elsewhere classified; T81.31XA Disruption of external operation (surgical) wound, not elsewhere classified, initial encounter; T65.222A Toxic effect of tobacco cigarettes, intentional self-harm, initial encounter; B96.5 Pseudomonas (aeruginosa) (mallei) (pseudomallei) as the cause of diseases classified elsewhere | CPT/HCPCS: 99213 ==

== ENCOUNTER → 2021-10-24 | Outpatient (CLI) | payer OTHER | LOC: WOUNDCARE 09:33 | PROVIDERS: ATTEND Family Medicine | DX: I96 Gangrene, not elsewhere classified (principal); L02.412 Cutaneous abscess of left axilla; L02.411 Cutaneous abscess of right axilla; T81.31XA Disruption of external operation (surgical) wound, not elsewhere classified, initial encounter; T65.222A Toxic effect of tobacco cigarettes, intentional self-harm, initial encounter; E66.01 Morbid (severe) obesity due to excess calories; Z68.41 Body mass index [BMI] 40.0-44.9, adult; B96.5 Pseudomonas (aeruginosa) (mallei) (pseudomallei) as the cause of diseases classified elsewhere | CPT/HCPCS: A6197; G0463; 99213 ==

== ENCOUNTER → 2021-10-31 | Outpatient (CLI) | payer OTHER | LOC: WOUNDCARE 09:15 | PROVIDERS: ATTEND Family Medicine | DX: L02.411 Cutaneous abscess of right axilla (principal); L02.412 Cutaneous abscess of left axilla; T81.31XA Disruption of external operation (surgical) wound, not elsewhere classified, initial encounter; T65.292A Toxic effect of other tobacco and nicotine, intentional self-harm, initial encounter; E66.01 Morbid (severe) obesity due to excess calories; I96 Gangrene, not elsewhere classified | CPT/HCPCS: 99213 ==

== ENCOUNTER → 2021-11-07 | Outpatient (CLI) | payer OTHER | LOC: WOUNDCARE 09:06 | PROVIDERS: ATTEND Family Medicine | DX: L02.411 Cutaneous abscess of right axilla (principal); L02.412 Cutaneous abscess of left axilla; T81.31XA Disruption of external operation (surgical) wound, not elsewhere classified, initial encounter; E66.01 Morbid (severe) obesity due to excess calories; T65.292A Toxic effect of other tobacco and nicotine, intentional self-harm, initial encounter; I96 Gangrene, not elsewhere classified | CPT/HCPCS: 11042; 11045; G0463 ==

== ENCOUNTER → 2021-11-14 | Outpatient (CLI) | payer OTHER | LOC: WOUNDCARE 08:56 | PROVIDERS: ATTEND Family Medicine | DX: L02.411 Cutaneous abscess of right axilla (principal); T81.31XA Disruption of external operation (surgical) wound, not elsewhere classified, initial encounter; T65.292A Toxic effect of other tobacco and nicotine, intentional self-harm, initial encounter; E66.01 Morbid (severe) obesity due to excess calories; I96 Gangrene, not elsewhere classified | CPT/HCPCS: 11042; 11045; G0463 ==

== ENCOUNTER → 2021-11-21 | Outpatient (CLI) | payer OTHER | LOC: WOUNDCARE 08:59 | PROVIDERS: ATTEND Family Medicine | DX: L02.411 Cutaneous abscess of right axilla (principal); T81.31XA Disruption of external operation (surgical) wound, not elsewhere classified, initial encounter; I96 Gangrene, not elsewhere classified; T65.222A Toxic effect of tobacco cigarettes, intentional self-harm, initial encounter; E66.01 Morbid (severe) obesity due to excess calories; S41.112A Laceration without foreign body of left upper arm, initial encounter; B37.3 Candidiasis of vulva and vagina; Z68.41 Body mass index [BMI] 40.0-44.9, adult | CPT/HCPCS: 11042; G0463 ==

== ENCOUNTER → 2021-11-30 | Outpatient (CLI) | payer SELFPAY | LOC: WOUNDCARE 08:50 | PROVIDERS: ATTEND Family Medicine | DX: L02.411 Cutaneous abscess of right axilla (principal); T81.31XA Disruption of external operation (surgical) wound, not elsewhere classified, initial encounter; T65.222A Toxic effect of tobacco cigarettes, intentional self-harm, initial encounter; E66.01 Morbid (severe) obesity due to excess calories; I96 Gangrene, not elsewhere classified; Z68.41 Body mass index [BMI] 40.0-44.9, adult | CPT/HCPCS: 11042; A6212; G0463 ==

== ENCOUNTER → 2021-12-05 | Outpatient (CLI) | payer SELFPAY | LOC: WOUNDCARE 08:55 | PROVIDERS: ATTEND Family Medicine | DX: L02.411 Cutaneous abscess of right axilla (principal); T81.31XA Disruption of external operation (surgical) wound, not elsewhere classified, initial encounter; T65.222A Toxic effect of tobacco cigarettes, intentional self-harm, initial encounter; E66.01 Morbid (severe) obesity due to excess calories; B96.5 Pseudomonas (aeruginosa) (mallei) (pseudomallei) as the cause of diseases classified elsewhere; I96 Gangrene, not elsewhere classified | CPT/HCPCS: 11042; G0463 ==

== ENCOUNTER → 2021-12-19 | Outpatient (CLI) | payer OTHER | LOC: WOUNDCARE 10:22 | PROVIDERS: ATTEND Family Medicine | DX: L02.411 Cutaneous abscess of right axilla (principal); T81.31XA Disruption of external operation (surgical) wound, not elsewhere classified, initial encounter; T65.222A Toxic effect of tobacco cigarettes, intentional self-harm, initial encounter; E66.01 Morbid (severe) obesity due to excess calories; B96.5 Pseudomonas (aeruginosa) (mallei) (pseudomallei) as the cause of diseases classified elsewhere; I96 Gangrene, not elsewhere classified; Z68.41 Body mass index [BMI] 40.0-44.9, adult | CPT/HCPCS: 11042; G0463 ==

== ENCOUNTER → 2022-01-02 | Outpatient (CLI) | payer OTHER | LOC: WOUNDCARE 08:58 | PROVIDERS: ATTEND Family Medicine | DX: L02.411 Cutaneous abscess of right axilla (principal); T81.31XA Disruption of external operation (surgical) wound, not elsewhere classified, initial encounter; T65.222A Toxic effect of tobacco cigarettes, intentional self-harm, initial encounter; E66.01 Morbid (severe) obesity due to excess calories; L92.8 Other granulomatous disorders of the skin and subcutaneous tissue; I96 Gangrene, not elsewhere classified; Z68.41 Body mass index [BMI] 40.0-44.9, adult | CPT/HCPCS: 11042; G0463 ==

== ENCOUNTER → 2022-01-09 | Outpatient (CLI) | payer OTHER | LOC: WOUNDCARE 09:31 | PROVIDERS: ATTEND Family Medicine | DX: L02.411 Cutaneous abscess of right axilla (principal); T81.31XA Disruption of external operation (surgical) wound, not elsewhere classified, initial encounter; T65.292A Toxic effect of other tobacco and nicotine, intentional self-harm, initial encounter; E66.01 Morbid (severe) obesity due to excess calories; L92.8 Other granulomatous disorders of the skin and subcutaneous tissue | CPT/HCPCS: 99212 ==

== ENCOUNTER 2022-04-29 04:05 | Emergency (ER) | payer OTHER ==
[~2022-04-29] VITALS: Ht 178 cm; Wt 125.1 kg
[2022-04-29 04:28] LABS: BASOPHILS % (AUTO) 0 % (0-10); EOSINOPHILS # (AUTO) 0.3 10^3/uL (0.0-0.3); EOSINOPHILS % (AUTO) 3 % (0-10); HEMATOCRIT 41 % (35-52); HEMOGLOBIN 13.3 g/dL (11.5-16.0); LYMPHOCYTES # (AUTO) 2.4 10^3/uL (1.0-4.0); LYMPHOCYTES % (AUTO) 25 % (12-44); MEAN CORPUSCULAR HEMOGLOBIN 29 pg (25-34); MEAN CORPUSCULAR HGB CONC 33 g/dL (32-36); MEAN CORPUSCULAR VOLUME 90 fL (80-99); MEAN PLATELET VOLUME 9.4 fL (9.0-12.2); MONOCYTES # (AUTO) 1.1 10^3/uL (0.0-1.0); MONOCYTES % (AUTO) 11 % (0-12); NEUTROPHILS # (AUTO) 5.9 10^3/uL (1.8-7.8); NEUTROPHILS % (AUTO) 61 % (42-75); PLATELET COUNT 473 10^3/uL (130-400); WHITE BLOOD COUNT 9.8 10^3/uL (4.3-11.0)
[2022-04-29] MEDS ORDERED: ONDANSETRON 4 MG/2 ML (SDV) Z0FRAN IVP ONE (04:30)
[2022-04-29] MEDS ORDERED: LIDOCAINE 2% VISCOUS 15 ML UDC PO ONE (04:30)
[2022-04-29] MEDS ORDERED: NS IV 1000 ML 1,000 ML IV SCH (04:30)
[2022-04-29] MEDS ORDERED: PANTOPRAZOLE 40 MG (PROTONIX) VIAL IV ONE (04:30)
[2022-04-29] MEDS ORDERED: ANTACID SUSP 30 ML UDC (MYLANTA) PO ONE (04:30)
[2022-04-29 04:37] LABS: ALBUMIN 4.3 GM/DL (3.2-4.5); POTASSIUM 3.6 MMOL/L (3.6-5.0)
[2022-04-29 04:38] LABS: CALCIUM 9.4 MG/DL (8.5-10.1)
[2022-04-29 04:39] LABS: TOTAL PROTEIN 7.8 GM/DL (6.4-8.2)
[2022-04-29 04:41] LABS: BILIRUBIN,TOTAL 0.3 MG/DL (0.1-1.0)
[2022-04-29 04:43] LABS: CREATININE SERUM 0.74 MG/DL (0.60-1.30)
--- NOTE | 2022-04-29 04:50 | ED Back Pain ---
General Chief Complaint: Back Problems Stated Complaint: BACK PAIN, STOMACH PAIN Source of Information: Patient Exam Limitations: No Limitations (NIRALI SO) History of Present Illness Date Seen by Provider: April 29, 2022 Time Seen by Provider: 04:14 Initial Comments Patient to the ER by private conveyance chief complaint of midline midline low back pain radiating to bilateral sides right worse than left. She is not having dysuria or frequency but she does have urgency when she needs to micturate. She feels a burning sensation in her anterior stomach. She has a history of appendectomy, gallbladder and tonsillectomy. (NIRALI SO) Allergies and Home Medications Allergies Coded Allergies: No Known Drug Allergies (Unverified , 09/28/21) Patient Home Medication List Home Medication List Reviewed: Yes (NIRALI SO) Acetaminophen (Tylenol Extra Strength) 500 Mg Tablet, 500 MG PO Q6H PRN for PAIN, (Reported) Entered as Reported by: MARK HAIDER on 09/27/21 0949 Cephalexin (Cephalexin) 500 Mg Tablet, 500 MG PO TID, (Reported) Entered as Reported by: MARK HAIDER on 09/27/21 0949 Docusate Sodium (Colace) 100 Mg Capsule, 100 MG PO DAILY Prescribed by: KIAH LEON on 09/28/21 1237 Hydrocodone/Acetaminophen (Hydrocodone-Acetamin 5-325 mg) 1 Each Tablet, 1 EACH PO Q4H PRN for PAIN-MODERATE (5-7) Prescribed by: KIAH LEON on 10/04/21 1443 Ibuprofen (Ibuprofen) 600 Mg Tablet, 600 MG PO Q6H PRN for PAIN-MILD, (Reported) Entered as Reported by: MARK HAIDER on 09/27/21 0949 Review of Systems Constitutional: No chills, No diaphoresis EENTM: No ear discharge, No ear pain Respiratory: No cough, No short of breath Cardiovascular: No chest pain, No edema Gastrointestinal: abdominal pain; No constipation, No diarrhea; nausea; No vomiting Musculoskeletal: see HPI, back pain; No joint pain Skin: No pruritus, No rash Psychiatric/Neurological: Denies Headache, Denies Numbness, Denies Paresthesia (NIRALI SO) All Other Systems Reviewed Negative Unless Noted: Yes (NIRALI SO) Past Dacuxut-Eplrub-Sumxtb Hx Patient Social History Tobacco Use?: No Use of E-Cig and/or Vaping dev: No Substance use?: No Alcohol Use?: No (NIRALI SO) Immunizations Up To Date Tetanus Booster (TDap): Unknown PED Vaccines UTD: Yes (NIRALI SO) Seasonal Allergies Seasonal Allergies: Yes (NIRALI SO) Past Medical History Surgeries: Yes (6 laproscopic surg, lymphnodectomy, LT ANKLE) Abdominal, Appendectomy, Gallbladder, Orthopedic, Tonsillectomy Respiratory: Yes (MILD SEASONALLY INDUCED ASTHMA) Asthma, Pneumonia Currently Using CPAP: No Currently Using BIPAP: No Cardiac: No Neurological: No Reproductive Disorders: No Female Reproductive Disorders: Menstrual Problems, Endometriosis, Polycystic Ovarian Dis Sexually Transmitted Disease: No HIV/AIDS: No Genitourinary: Yes Kidney Infection, UTI-Chronic Gastrointestinal: Yes (OCC REFLUX) Gastroesophageal Reflux, Gall Bladder Disease Musculoskeletal: Yes (left ankle/foot injuries) Chronic Back Pain Endocrine: No HEENT: No Loss of Vision: Denies Hearing Impairment: Denies Cancer: No Psychosocial: Yes Anxiety, PTSD, Depression Integumentary: No Blood Disorders: No Adverse Reaction/Blood Tranf: No (N/A) (NIRALI SO) Family Medical History Alcoholism G8 BROTHER Asthma G8 BROTHER Diabetes mellitus 19 FATHER G8 BROTHER Drug abuse G8 BROTHER G8 BROTHER Hypercholesterolemia 19 FATHER Hypertension 19 FATHER G8 BROTHER Thyroid disease 19 MOTHER No Family History of: AIDS Abdominal aortic aneurysm Briscoe's disease Alzheimer's disease Aphasia Arthritis Cancer of mouth Cardiovascular disease Cataracts Colon cancer Completed stroke Congenital disease Congenital heart disease Coronary thrombosis Cystic fibrosis Deafness or hearing loss Dementia Dysphasia Fibrocystic disease of breast Gastroenteritis Glaucoma Headache disorder Infertility Kidney disease Myocardial infarction Neoplasm Not obtainable due to adoption Osteoporosis Parkinson's disease Prostate cancer Psychosocial problem Respiratory disorder Seizure disorder Severe allergy Tuberculosis Visual disorder Physical Exam Vital Signs Vital Signs - First Documented 04/29/22 04:12 Temp 36.3 Pulse 101 Resp 22 B/P (MAP) 135/74 (94) Pulse Ox 97 (BRE MARTINEZ MD) Vital Signs Capillary Refill : (NIRALI SO) Height, Weight, BMI Height: 5'10.50" Weight: 232lbs. 0.6oz. 105.531230ud; 40.11 BMI Method:Stated General Appearance: Anxious, Mild Distress, Obese HEENT: PERRL/EOMI, Pharynx Normal, Moist Mucous Membranes Neck: Full Range of Motion, Normal Inspection Cardiovascular: Regular Rate, Rhythm, No Edema, Normal Peripheral Pulses Respiratory: Lungs Clear, Normal Breath Sounds, No Accessory Muscle Use, No Respiratory Distress Peripheral Pulses: 2+ Radial Pulses (R), 2+ Radial Pulses (L) Gastrointestinal: Normal Bowel Sounds, Non Tender, Soft Back: Normal Inspection, CVA Tenderness (L), CVA Tenderness (R), Muscle Spasm Neurologic/Psychiatric: Alert, Oriented x3; No Normal Mood/Affect (Anxious affect) Skin: Normal Color, Warm/Dry (No rash over the back) (NIRALI SO) Progress/Results/Core Measures Results/Orders Lab Results Laboratory Tests Test 04/29/22 04:20 04/29/22 04:58 Range/Units White Blood Count 9.8 4.3-11.0 10^3/uL Red Blood Count 4.55 3.80-5.11 10^6/uL Hemoglobin 13.3 11.5-16.0 g/dL Hematocrit 41 35-52 % Mean Corpuscular Volume 90 80-99 fL Mean Corpuscular Hemoglobin 29 25-34 pg Mean Corpuscular Hemoglobin Concent 33 32-36 g/dL Red Cell Distribution Width 14.5 10.0-14.5 % Platelet Count 473 H 130-400 10^3/uL Mean Platelet Volume 9.4 9.0-12.2 fL Immature Granulocyte % (Auto) 0 % Neutrophils (%) (Auto) 61 42-75 % Lymphocytes (%) (Auto) 25 12-44 % Monocytes (%) (Auto) 11 0-12 % Eosinophils (%) (Auto) 3 0-10 % Basophils (%) (Auto) 0 0-10 % Neutrophils # (Auto) 5.9 1.8-7.8 10^3/uL Lymphocytes # (Auto) 2.4 1.0-4.0 10^3/uL Monocytes # (Auto) 1.1 H 0.0-1.0 10^3/uL Eosinophils # (Auto) 0.3 0.0-0.3 10^3/uL Basophils # (Auto) 0.0 0.0-0.1 10^3/uL Immature Granulocyte # (Auto) 0.0 0.0-0.1 10^3/uL Sodium Level 140 135-145 MMOL/L Potassium Level 3.6 3.6-5.0 MMOL/L Chloride Level 104 98-107 MMOL/L Carbon Dioxide Level 21 21-32 MMOL/L Anion Gap 15 H 5-14 MMOL/L Blood Urea Nitrogen 15 7-18 MG/DL Creatinine 0.74 0.60-1.30 MG/DL Estimat Glomerular Filtration Rate 112 BUN/Creatinine Ratio 20 Glucose Level 115 H 70-105 MG/DL Calcium Level 9.4 8.5-10.1 MG/DL Corrected Calcium 9.2 8.5-10.1 MG/DL Total Bilirubin 0.3 0.1-1.0 MG/DL Aspartate Amino Transf (AST/SGOT) 22 5-34 U/L Alanine Aminotransferase (ALT/SGPT) 33 0-55 U/L Alkaline Phosphatase 78 40-136 U/L C-Reactive Protein High Sensitivity 2.24 H 0.00-0.50 MG/DL Total Protein 7.8 6.4-8.2 GM/DL Albumin 4.3 3.2-4.5 GM/DL Lipase 20 8-78 U/L Urine Color YELLOW Urine Clarity CLEAR Urine pH 6.0 5-9 Urine Specific [place] >=1.030 1.016-1.022 Urine Protein NEGATIVE NEGATIVE Urine Glucose (UA) NEGATIVE NEGATIVE Urine Ketones NEGATIVE NEGATIVE Urine Nitrite NEGATIVE NEGATIVE Urine Bilirubin NEGATIVE NEGATIVE Urine Urobilinogen 0.2 < = 1.0 MG/DL Urine Leukocyte Esterase NEGATIVE NEGATIVE Urine RBC (Auto) 2+ H NEGATIVE Urine RBC 2-5 H /HPF Urine WBC NONE /HPF Urine Squamous Epithelial Cells 2-5 /HPF Urine Crystals NONE /LPF Urine Bacteria TRACE /HPF Urine Casts NONE /LPF Urine Mucus SMALL H /LPF Urine Culture Indicated NO (BRE MARTINEZ MD) My Orders Orders - BRE MARTINEZ MD Morphine Injection (Morphine Injection (04/29/22 06:54) Orphenadrine Inj (Ed Only) (Norflex Inje (04/29/22 07:00) (BRE MARTINEZ MD) Medications Given in ED Current Medications Medications Dose Ordered Sig/Diamond Route Start Time Stop Time Status Last Admin Dose Admin Al Hydrox/Mg Hydrox/Simethicone 30 ml ONCE ONCE PO 5/29/22 04:30 04/29/22 04:32 DC 04/29/22 04:34 30 ML Ketorolac Tromethamine 30 mg ONCE ONCE IVP 04/29/22 06:00 04/29/22 06:01 DC 04/29/22 05:52 30 MG Lidocaine HCl 15 ml ONCE ONCE PO 04/29/22 04:30 04/29/22 04:32 DC 04/29/22 04:34 15 ML Ondansetron HCl 8 mg ONCE ONCE IVP 04/29/22 04:30 04/29/22 04:32 DC 04/29/22 04:34 8 MG Orphenadrine Citrate 60 mg ONCE ONCE IV 04/29/22 07:00 04/29/22 07:01 DC 04/29/22 06:59 60 MG Pantoprazole 40 mg ONCE ONCE IV 04/29/22 04:30 04/29/22 04:32 DC 04/29/22 04:34 40 MG (BRE MARTINEZ MD) Vital Signs/I&O 04/29/22 04:12 Temp 36.3 Pulse 101 Resp 22 B/P (MAP) 135/74 (94) Pulse Ox 97 (BRE MARTINEZ MD) Progress Progress Note #1: Time: 04:50 Progress Note Urinalysis, labs. Pyelonephritis, less likely kidney stone or musculoskeletal type pain. Because of the burning in her epigastric region we will give her a GI cocktail and check a lipase. Progress Note #2: Time: 05:47 Progress Note The GI cocktail did nothing for her pain in her back or burning in her epigastrium. Labs are unrevealing. She does have a small microscopic amount of blood in her urine so we get a CT of her abdomen and pelvis without contrast kidney stone protocol and give her some Toradol for her pain. (NIRALI SO) Progress Note : Time: 07:55 Progress Note Patient is a 31-year-old female who presents to the emergency department with an acute exacerbation of her chronic back pain. Patient states that she had a back injury in seventh or eighth grade and her back has never "been the same since". Over the last week she has noticed a slow onset of mid back to the right hip and into the right groin of increased pain. She denies numbness weakness or tingling in the leg. She states any subtle movement can exacerbate the pain. She has been taking 800 mg ibuprofen every 8-12 hours without much relief. She is tried ojjn-egr-ciscade pain patches without much relief. She has had previous MRI. She has what sounds like stress incontinence, she is had 5 children. She has not had actual bladder incontinence, she does not have saddle anesthesia. No concern for acute cauda equina syndrome. She points to approximately L2/L3 as the source of her pain. No overlying rashes are noted on the skin. Straight leg raise on the right is negative, cross straight leg leg raise on the left causes pain in the right hip. Otherwise sensation and vascular function are intact to both lower extremities She is quite tearful and anxious about her health. She has been under an increa sed amount of stress recently, of her mother, taking care of her 5 children, her embarrassment over her stress incontinence. She is worried about missing work as it is a holiday weekend and she will be "double pointed" if she misses work tomorrow. She feels like she is not getting the treatment she needs through [facility]. It sounds like she may need to be on a short course of antidepressants. She needs better pain management. Plan to send her home with some hydrocodone and muscle relaxers. We will put her also on a short course of steroids. She likely needs repeat MRI. CT scan of the abdomen pelvis without contrast does not show anything remarkable in her back or abdomen. She did have a nonobstructing 5 mm right sided kidney stone. No evidence of hydronephrosis. She did have slight microscopic hematuria. Her last menstrual cycle was 2 weeks ago. No clinical or objective findings to warrant further studies out of the emergency department at this time. All questions are sought and answered. (BRE MARTINEZ MD) Diagnostic Imaging Diagonstic Imaging: CT Plain Films/CT/US/NM/MRI: abdomen, pelvis Reviewed: Reviewed by Me (NIRALI SO) Comments [facility] [place], [place] NAME: ZEHRA YO MED REC#: [id number] PT STATUS: REG ER : 1990 PHYSICIAN: NIRALI SO MD ADMIT DATE: 04/29/22/ER Draft Date of Exam:04/29/22 CT ABD/PELVIS WO(KIDNEY STONE) PROCEDURE: CT urinary tract, rule out kidney stone. TECHNIQUE: Multiple contiguous axial images were obtained through the abdomen and pelvis without the use of intravenous contrast. Auto Exposure Controls were utilized during the CT exam to meet ALARA standards for radiation dose reduction. INDICATION: Flank pain COMPARISON: 08/13/2016 FINDINGS: The visualized lung bases are clear. Cholecystectomy. The unenhanced liver and spleen are unremarkable. The adrenal glands are unremarkable. The pancreas is unremarkable. A 0.5 cm nonobstructing calculus is again identified within the right kidney, minimally more prominent than in 2016. The bilateral kidneys and ureters are otherwise unremarkable. No aneurysmal dilatation of the abdominal aorta. The urinary bladder is unremarkable. The uterus and adnexal structures are unremarkable for age. No bowel obstruction or pneumatosis. No evidence of appendicitis. No significant adenopathy, free air, or free fluid in abdomen or pelvis. No acute osseous abnormality. IMPRESSION: 0.5 cm nonobstructing right renal calculus, minimally more prominent than in 2016. Cholecystectomy. Dictated on workstation # [id number] Dict: 04/29/22 0658 Trans: 04/29/22 0709 CV [id number] Interpreted by: ALENA ANDREWS MD Electronically signed by: (BRE MARTINEZ MD) Transfer of Care Time: 06:43 Care transferred to: Dr. Martinez (NIRALI SO) Departure Impression Primary Impression: Lumbar radiculopathy Additional Impressions: Back pain Qualified Codes: M54.50 - Low back pain, unspecified Anxiety about health Disposition: 01 HOME, SELF-CARE Condition: Stable Departure-Patient Inst. Decision time for Depature: 08:05 (BRE MARTINEZ MD) Referrals: NO,LOCAL PHYSICIAN (PCP) Primary Care Physician FLAKO FORRESTER APRN (Family) [place] [facility] Phys[place] [facility] [place] Instructions: Radiculopathy Add. Discharge Instructions: Try and stay active as much as possible. Alternate heat and ice to the areas of pain in your low back. You can also use yegc-ake-wwhxecl lidocaine patches such as Salonpas, Biofreeze or other muscle rubs. I have sent you a prescription of hydrocodone to the pharmacy. This is a narcotic and can be addictive. Please take it only as needed. Do not drive and take this medication. Narcotic pain medications can cause constipation. It is a good idea to be on a stool softener daily while taking the pain medicine. I have also sent your prescription for muscle relaxers. Take these as directed/needed. Also a steroid taper. Take these medications as directed. Steroids can cause you some disrupted sleep, increased appetite, feelings of "hot flashes" as well as impact your mood making you a little edgy. You can continue to take ieaj-yya-jehrlkc ibuprofen, 800 mg every 12 hours with food. If you are having to take the ibuprofen as well as the steroids you should get some generic Pepcid and take this twice daily. Return to the emergency room for reevaluation if you have worsening back pain especially with pain that radiates down your leg, loss of sensation in your pelvis with complete loss of bowel or bladder function. Please call and make a follow-up appointment with [facility]. Scripts Hydrocodone/Acetaminophen (Hydrocodone-Acetamin 5-325 mg) 5 Mg-325 Mg Tablet 1 TAB PO Q6H PRN for PAIN-MODERATE (5-7), #12 TAB Prov: BRE MARTINEZ MD 04/29/22 Methocarbamol (Methocarbamol) 500 Mg Tablet 1000 MG PO Q6-8HR for Back Pain, #30 TAB Prov: BRE MARTINEZ MD 04/29/22 Prednisone (Prednisone) 10 Mg Tab.ds.pk 10 MG PO DAILY, #42 EA Take 6 tabs(60mg)daily,decrease by 1 tab(10mg)every other day. Prov: BRE MARTINEZ MD 04/29/22 Work/School Note: Work Release Form Date Seen in the Emergency Department: April 29, 2022 Return to Work: May 01, 2022 Copy Copies To 1: CARLITOS TAVARES TITUS J April 29, 2022 04:50 RBE MARTINEZ MD April 29, 2022 08:04
[2022-04-29 05:10] LABS: BILIRUBIN,URINE NEGATIVE (NEGATIVE); CLARITY,URINE CLEAR; COLOR,URINE YELLOW; GLUCOSE, URINE (UA) NEGATIVE (NEGATIVE); KETONES,URINE NEGATIVE (NEGATIVE); LEUKOCYTE ESTERASE ,URINE NEGATIVE (NEGATIVE); NITRITE,URINE NEGATIVE (NEGATIVE); PROTEIN,URINE NEGATIVE (NEGATIVE)
[2022-04-29 05:32] LABS: BACTERIA,URINE TRACE /HPF
[2022-04-29] MEDS ORDERED: KETOROLAC 30 MG/ML VIAL IVP ONE (06:00)
[2022-04-29] MEDS ORDERED: morphine INJ 10 MG/ML 1ML (SYR OR VIAL) IVP STA ×2 (06:54→08:11)
[2022-04-29] MEDS ORDERED: ORPHENADRINE 60 MG/2 ML (NORFLEX) AMP (ED ONLY) IV ONE (07:00)
--- NOTE | 2022-04-29 07:09 | Diagnostic Imaging Report ---
PROCEDURE: CT urinary tract, rule out kidney stone. TECHNIQUE: Multiple contiguous axial images were obtained through the abdomen and pelvis without the use of intravenous contrast. Auto Exposure Controls were utilized during the CT exam to meet ALARA standards for radiation dose reduction. INDICATION: Flank pain COMPARISON: 08/13/2016 FINDINGS: The visualized lung bases are clear. Cholecystectomy. The unenhanced liver and spleen are unremarkable. The adrenal glands are unremarkable. The pancreas is unremarkable. A 0.5 cm nonobstructing calculus is again identified within the right kidney, minimally more prominent than in 2016. The bilateral kidneys and ureters are otherwise unremarkable. No aneurysmal dilatation of the abdominal aorta. The urinary bladder is unremarkable. The uterus and adnexal structures are unremarkable for age. No bowel obstruction or pneumatosis. No evidence of appendicitis. No significant adenopathy, free air, or free fluid in abdomen or pelvis. No acute osseous abnormality. IMPRESSION: 0.5 cm nonobstructing right renal calculus, minimally more prominent than in 2016. Cholecystectomy. Dictated by: Dictated on workstation # [id number]
[2022-04-29] MEDS ORDERED: METH-731 PO (08:10)
[2022-04-29] MEDS ORDERED: PRED10TA22 PO (08:10)
[2022-04-29] MEDS ORDERED: ACHD5005 PO (08:10)
[2022-04-29] MEDS ORDERED: predniSONE 20 MG TAB PO ONE (08:15)
[2022-04-29] MEDS ORDERED: HYDROcodone/APAP 5 MG/325 MG (LORTAB) TAB PO ONE (08:15)
[2022-04-29 08:40] VITALS: BP 118/90
== END 2022-04-29 08:40 | disposition home or self-care (01) ==
LOC: EDUNIT# 04:05 → ER 04:07
DX: M54.16 Radiculopathy, lumbar region (principal); F41.1 Generalized anxiety disorder; R31.29 Other microscopic hematuria; Z90.49 Acquired absence of other specified parts of digestive tract
CPT/HCPCS: 36415; 74176; 80053; 81000; 83690; 84703; 85025; 86141

== ENCOUNTER 2022-05-03 13:44 | Emergency (ER) | payer OTHER ==
[~2022-05-03] VITALS: Ht 178 cm; Wt 129.0 kg
[~2022-05-03 13:44] MED LIST changes: +METH-731 PO; +PRED10TA22 PO
--- NOTE | 2022-05-03 14:44 | ED General ---
General Chief Complaint: Abdominal/GI Problems Stated Complaint: ABD SWELLING,N/V,VAGINAL LOSS OF FEELING, SEEN 529 Nursing Triage Note: PT AMBULATORY TO ER WITH SO. PT REPORTS WAS SEEN IN ER OVER THE WEEKEND FOR LOWER BACK AND ABD 'BURNING', REPORTS CT PERFORMED, STATES PHYSICIAN WANTED TO DO MRI BUT WAS UNABLE TO DO SO DURING THE NIGHT. PT REPORTS SENT HOME WITH PEPCID. PT REPORTS ABD SWOLLEN AND TENDER TO TOUCH, REPORTS NOW VOMITING. PT STATES FEELING NUMB IN VAGINAL AREA, REPORTS UNABLE TO TELL WHEN SHE IS URINATING. PT HAS AN APPT SCHEDULED WITH PCP TOMORROW BUT DOES NOT FEEL LIKE SHE CAN WAIT UNTIL THEN. (NICHOLAS HAND) History of Present Illness Date Seen by Provider: May 03, 2022 Time Seen by Provider: 14:20 Initial Comments 31 year old female brought into the ED today by her for back pain, abdominal pain, Nausea, vomiting, and acute onset urinary incontinence and saddle anesthesia. She has chronic back pain that has been progressively worsening for the past month with significant worsening in the past week. She was seen on April [address] scan at that time which showed no osseus abnormalities and a 0.5cm renal calculus that was more prominent than when seen in 2016. She was sent home with prednisone, hydrocodone, and methocarbamol at that time. Her symptoms failed to resolve and she has been experiencing vaginal numbness and urinary incontinence for the past 24 hours as well as leg heaviness that is impairing her ability to walk. She reports moving makes her back pain worse and nothing seems to help. She denies recent trauma to her back. She is not experiencing numbness or stabbing pains in her legs. She points to epigastric region when asked where her abdomen hurts and describes it as a 7/10 burning pain that spreads into her right flank at times. Eating makes her pain worse. She is currently taking pepcid x2 daily for reflux but doesn't feel like it is helping. On exam the patient had a very dull right tympanic membrane with white fluid beh ind the membrane concerning for otitis media. When asked, the patient reports she has been having right ear pain lately and has a history of fluid accumulation behind her ears. She does not have a PCP at this time but is setting up care at this time with Dr. Magana at [facility]. (NICHOLAS HAND) Allergies and Home Medications Allergies Coded Allergies: No Known Drug Allergies (Unverified , 09/28/21) Patient Home Medication List Home Medication List Reviewed: Yes (BRE MARTINEZ MD) Acetaminophen (Tylenol Extra Strength) 500 Mg Tablet, 500 MG PO Q6H PRN for PAIN, (Reported) Entered as Reported by: MARK HAIDER on 09/27/21 0949 Cephalexin (Cephalexin) 500 Mg Tablet, 500 MG PO TID, (Reported) Entered as Reported by: MARK HAIDER on 09/27/21 0949 Docusate Sodium (Colace) 100 Mg Capsule, 100 MG PO DAILY Prescribed by: IKAH LEON on 09/28/21 1237 Hydrocodone/Acetaminophen (Hydrocodone-Acetamin 5-325 mg) 1 Each Tablet, 1 EACH PO Q4H PRN for PAIN-MODERATE (5-7) Prescribed by: KIAH LEON on 10/04/21 1443 Hydrocodone/Acetaminophen (Hydrocodone-Acetamin 5-325 mg) 5 Mg-325 Mg Tablet, 1 TAB PO Q6H PRN for PAIN-MODERATE (5-7) Prescribed by: BRE MARTINEZ on 04/29/22 0810 Ibuprofen (Ibuprofen) 600 Mg Tablet, 600 MG PO Q6H PRN for PAIN-MILD, (Reported) Entered as Reported by: MARK HAIDER on 09/27/21 0949 Methocarbamol (Methocarbamol) 500 Mg Tablet, 1,000 MG PO Q6-8HR Prescribed by: BRE MARTINEZ on 04/29/22 0810 Oxycodone HCl/Acetaminophen (Oxycodone-Acetaminophen 5-325) 5 Mg-325 Mg Tablet, 1 EACH PO Q6H PRN for PAIN-MODERATE Prescribed by: BRE MARTINEZ on 05/03/22 1648 Prednisone (Prednisone) 10 Mg Tab.ds.pk, 10 MG PO DAILY Prescribed by: BRE MARTINEZ on 04/29/22 0810 Sucralfate (Carafate) 1 Gram Tablet, 1 GM PO Q6H Prescribed by: BRE MARTINEZ on 05/03/22 1648 Review of Systems Review of Systems Constitutional: No chills, No fever EENTM: hearing loss (diminished hearing in right ear), ear pain (right ear); No vision loss, No throat pain Respiratory: cough (lingering from prior URTI several weeks ago), short of breath (mild) Cardiovascular: No chest pain, No palpitations Gastrointestinal: abdominal pain (epigastric and right flank); No constipation; diarrhea (Dark black and mucousy per patient), heartburn, nausea, vomiting (red bilious vomit per patient) Genitourinary: No dysuria, No hematuria; incontinence, other (vaginal numbness) : No Musculoskeletal: back pain, muscle pain (back) Skin: No change in color, No lesions, No rash Psychiatric/Neurological: Anxiety, Numbness (vaginal); Denies Paresthesia; Weakness (heaviness of legs that turns into weakness with walking) Hematologic/Lymphatic: No Symptoms Reported Immunological/Allergic: no symptoms reported (NICHOLAS HAND) Past Qnbvbuh-Skgvvh-Akxmjd Hx Patient Social History Tobacco Use?: Yes Tobacco type used: Cigarettes Smoking Status: Current Everyday Smoker Use of E-Cig and/or Vaping dev: No Substance use?: No Alcohol Use?: No Pt feels they are or have been: No (NICHOLAS HAND) Immunizations Up To Date Tetanus Booster (TDap): Unknown PED Vaccines UTD: Yes First/Initial COVID19 Vaccinat: NO (NICHOLAS HAND) Seasonal Allergies Seasonal Allergies: Yes (NICHOLAS HAND) Past Medical History Surgeries: Yes (6 laproscopic surg, lymphnodectomy, LT ANKLE) Abdominal, Appendectomy, Gallbladder, Orthopedic, Tonsillectomy Respiratory: Yes (MILD SEASONALLY INDUCED ASTHMA) Asthma, Pneumonia Currently Using CPAP: No Currently Using BIPAP: No Cardiac: No Neurological: No Last Menstrual Period: April 12, 2022 Reproductive Disorders: No Female Reproductive Disorders: Menstrual Problems, Endometriosis, Polycystic Ovarian Dis Sexually Transmitted Disease: No HIV/AIDS: No Genitourinary: Yes Kidney Infection, UTI-Chronic Gastrointestinal: Yes (OCC REFLUX) Gastroesophageal Reflux, Gall Bladder Disease Musculoskeletal: Yes (left ankle/foot injuries) Chronic Back Pain Endocrine: No HEENT: No Loss of Vision: Denies Hearing Impairment: Denies Cancer: No Psychosocial: Yes Anxiety, PTSD, Depression Integumentary: No Blood Disorders: No Adverse Reaction/Blood Tranf: No (N/A) (NICHOLAS HAND) Family Medical History Alcoholism G8 BROTHER Asthma G8 BROTHER Diabetes mellitus 19 FATHER G8 BROTHER Drug abuse G8 BROTHER G8 BROTHER Hypercholesterolemia 19 FATHER Hypertension 19 FATHER G8 BROTHER Thyroid disease 19 MOTHER No Family History of: AIDS Abdominal aortic aneurysm Aakash's disease Alzheimer's disease Aphasia Arthritis Cancer of mouth Cardiovascular disease Cataracts Colon cancer Completed stroke Congenital disease Congenital heart disease Coronary thrombosis Cystic fibrosis Deafness or hearing loss Dementia Dysphasia Fibrocystic disease of breast Gastroenteritis Glaucoma Headache disorder Infertility Kidney disease Myocardial infarction Neoplasm Not obtainable due to adoption Osteoporosis Parkinson's disease Prostate cancer Psychosocial problem Respiratory disorder Seizure disorder Severe allergy Tuberculosis Visual disorder Physical Exam Vital Signs Vital Signs - First Documented 05/03/22 05/03/22 13:52 16:54 Temp 35.9 Pulse 100 Resp 18 B/P (MAP) 142/109 (120) Pulse Ox 94 O2 Delivery Room Air (BRE MARTINEZ MD) Vital Signs Capillary Refill : (NICHOLAS HAND) Height, Weight, BMI Height: 5'10.50" Weight: 232lbs. 0.6oz. 105.418004fs; 40.00 BMI Method:Stated General Appearance: Anxious, Mild Distress, Obese Eyes: Bilateral Eye Normal Inspection, Bilateral Eye PERRL, Bilateral Eye EOMI HEENT: PERRL/EOMI, Pharynx Normal, Moist Mucous Membranes, TM Abnormal (R) (Tympanic membrane is dull with white fluid behind membrane. ) Neck: Full Range of Motion, Non Tender, Supple Respiratory: No Accessory Muscle Use, No Respiratory Distress, Wheezing (mild wheezing diffusely), Other (mildly course breath sounds) Cardiovascular: No Edema, No Murmur, Normal Peripheral Pulses, Tachycardia Gastrointestinal: Normal Bowel Sounds, Soft; No Distended, No Rebound; Tenderness (Diffuse abdominal tenderness worse with palpation of epigastric region, right flank, and LLQ.) Back: Vertebral Tenderness (Began in Lower thoracic region and remained present in sacral area.), Other (Straight leg raise test negative. Did cause significant back pain bilaterally. ) Extremity: Non Tender, No Pedal Edema Neurologic/Psychiatric: Alert, Oriented x3, watch inspector II-XII Norm as Tested, Motor Weakness (3+ muscle strength with hip extension. Patient appeared to be in significant discomfort when trying to elevate legs off table.) Skin: Normal Color, Warm/Dry Lymphatic: No Adenopathy (NICHOLAS HAND) Progress/Results/Core Measures Suspected Sepsis SIRS Temperature: Pulse: 100 Respiratory Rate: 18 Laboratory Tests 05/03/22 14:02: White Blood Count 19.6H Blood Pressure 142 /109 Mean: 120 Laboratory Tests 05/03/22 14:02: Creatinine 0.77, Platelet Count 561H, Total Bilirubin 0.3 (NICHOLAS HAND) Results/Orders Lab Results Laboratory Tests Test 05/03/22 14:02 Range/Units White Blood Count 19.6 H 4.3-11.0 10^3/uL Red Blood Count 4.76 3.80-5.11 10^6/uL Hemoglobin 14.0 11.5-16.0 g/dL Hematocrit 43 35-52 % Mean Corpuscular Volume 90 80-99 fL Mean Corpuscular Hemoglobin 29 25-34 pg Mean Corpuscular Hemoglobin Concent 33 32-36 g/dL Red Cell Distribution Width 14.4 10.0-14.5 % Platelet Count 561 H 130-400 10^3/uL Mean Platelet Volume 9.6 9.0-12.2 fL Immature Granulocyte % (Auto) 1 % Neutrophils (%) (Auto) 88 H 42-75 % Lymphocytes (%) (Auto) 9 L 12-44 % Monocytes (%) (Auto) 3 0-12 % Eosinophils (%) (Auto) 0 0-10 % Basophils (%) (Auto) 0 0-10 % Neutrophils # (Auto) 17.1 H 1.8-7.8 10^3/uL Lymphocytes # (Auto) 1.7 1.0-4.0 10^3/uL Monocytes # (Auto) 0.6 0.0-1.0 10^3/uL Eosinophils # (Auto) 0.0 0.0-0.3 10^3/uL Basophils # (Auto) 0.0 0.0-0.1 10^3/uL Immature Granulocyte # (Auto) 0.1 0.0-0.1 10^3/uL Neutrophils % (Manual) 86 % Lymphocytes % (Manual) 10 % Monocytes % (Manual) 4 % Blood Morphology Comment NORMAL Sodium Level 137 135-145 MMOL/L Potassium Level 3.8 3.6-5.0 MMOL/L Chloride Level 102 98-107 MMOL/L Carbon Dioxide Level 26 21-32 MMOL/L Anion Gap 9 5-14 MMOL/L Blood Urea Nitrogen 18 7-18 MG/DL Creatinine 0.77 0.60-1.30 MG/DL Estimat Glomerular Filtration Rate 106 BUN/Creatinine Ratio 23 Glucose Level 125 H 70-105 MG/DL Calcium Level 9.7 8.5-10.1 MG/DL Corrected Calcium 9.5 8.5-10.1 MG/DL Total Bilirubin 0.3 0.1-1.0 MG/DL Aspartate Amino Transf (AST/SGOT) 27 5-34 U/L Alanine Aminotransferase (ALT/SGPT) 55 0-55 U/L Alkaline Phosphatase 74 40-136 U/L Total Protein 7.6 6.4-8.2 GM/DL Albumin 4.3 3.2-4.5 GM/DL Lipase 16 8-78 U/L (BRE MARTINEZ MD) My Orders Orders - BRE MARTINEZ MD Mri Lumbar Spine W/O Contrast (05/03/22 14:37) Fentanyl Inj (Sublimaze Injection) (05/03/22 14:45) Ed Iv/Invasive Line Start (05/03/22 14:40) Cbc With Automated Diff (05/03/22 14:40) Comprehensive Metabolic Panel (05/03/22 14:40) Lipase (05/03/22 14:40) Pantoprazole Injection (Protonix Injecti (05/03/22 14:45) Fecal Occult Bedside (05/03/22 14:40) Manual Differential (05/03/22 14:02) Fentanyl Inj (Sublimaze Injection) (05/03/22 17:00) (BRE MARTINEZ MD) Medications Given in ED (BRE MARTINEZ MD) Vital Signs/I&O 05/03/22 05/03/22 13:52 16:54 Temp 35.9 Pulse 100 72 Resp 18 18 B/P (MAP) 142/109 (120) 148/99 Pulse Ox 94 O2 Delivery Room Air Room Air (BRE MARTINEZ MD) Vital Signs/I&O Capillary Refill : (NICHOLAS HAND) Blood Pressure Mean: 120 Progress Note : Time: 16:32 Progress Note Patient seen and examined by me 31-year-old female, third visit to the emergency department with low back pain bilateral hip pain and what she now complains of as numbness to her vagina. She also endorses a little incontinence. She has been taking hydrocodone and methocarbamol on a steroid taper. She states these do not seem to be helping. She has a follow-up appointment with [facility] tomorrow. Denies fevers chills, cough, dysuria, abnormal vaginal discharge or diarrhea. Physical exam remarkable for good sphincter tone. She endorses "numbness" or "dullness" to the perineum. Motor strength to the bilateral lower extremities seems intact she does have pain with trying to elevate both legs but it does not radiate below the knee. (BRE MARTINEZ MD) Departure Impression Primary Impression: Low back pain Qualified Codes: M54.42 - Lumbago with sciatica, left side Disposition: 01 HOME, SELF-CARE Condition: Improved Departure-Patient Inst. Decision time for Depature: 16:45 (BRE MARTINEZ MD) Referrals: [facility],LOCAL PHYSICIAN (PCP) Primary Care Physician Patient Instructions: Low Back Pain ED Add. Discharge Instructions: Drink lots of fluids to stay well-hydrated. Take stool softeners daily while taking narcotic pain medications. Use [id number] pain relieving patches in addition to your anti- inflammatories and pain medications and muscle relaxers. Start taking Carafate 30 minutes before each meal up to 4 times a day for the burning in your stomach. I have switched you from hydrocodone to oxycodone. Do not drive and take this medication, it can be highly addictive. Please keep your follow-up appointment with your primary care provider tomorrow. Return to the emergency department for any new, concerning or emergent complaints. Scripts Sucralfate (Carafate) 1 Gram Tablet 1 GM PO Q6H, #60 TAB take 30 minutes before meals Prov: BRE MARTINEZ MD 05/03/22 Oxycodone HCl/Acetaminophen (Oxycodone-Acetaminophen 5-325) 5 Mg-325 Mg Tablet 1 EACH PO Q6H PRN for PAIN-MODERATE MDD 6, #12 TAB 0 Refills Prov: BRE MARTINEZ MD 05/03/22 Verification and Attestation of Medical Student E/M Service A medical student performed and documented this service in my presence. I re viewed and verified all information documented by the medical student and made modifications to such information, when appropriate. I personally performed the physical exam and medical decision making. Bre Martinez, May 03, 2022,16:45 (BRE MARTINEZ MD) NICHOLAS HAND May 03, 2022 14:44 BRE MARTINEZ MD May 03, 2022 16:36
[2022-05-03] MEDS ORDERED: PANTOPRAZOLE 40 MG (PROTONIX) VIAL IV ONE (14:45)
[2022-05-03] MEDS ORDERED: fentaNYL INJ 100 MCG/2 ML AMP IVP ONE ×2 (14:45→17:00)
[2022-05-03 14:46] LABS: BASOPHILS % (AUTO) 0 % (0-10); EOSINOPHILS % (AUTO) 0 % (0-10); HEMATOCRIT 43 % (35-52); LYMPHOCYTES # (AUTO) 1.7 10^3/uL (1.0-4.0); LYMPHOCYTES % (AUTO) 9 % (12-44); MEAN CORPUSCULAR HEMOGLOBIN 29 pg (25-34); MEAN CORPUSCULAR HGB CONC 33 g/dL (32-36); MEAN CORPUSCULAR VOLUME 90 fL (80-99); MEAN PLATELET VOLUME 9.6 fL (9.0-12.2); MONOCYTES # (AUTO) 0.6 10^3/uL (0.0-1.0); MONOCYTES % (AUTO) 3 % (0-12); NEUTROPHILS # (AUTO) 17.1 10^3/uL (1.8-7.8); NEUTROPHILS % (AUTO) 88 % (42-75); PLATELET COUNT 561 10^3/uL (130-400); WHITE BLOOD COUNT 19.6 10^3/uL (4.3-11.0)
[2022-05-03 14:50] LABS: ALBUMIN 4.3 GM/DL (3.2-4.5); POTASSIUM 3.8 MMOL/L (3.6-5.0)
[2022-05-03 14:51] LABS: CALCIUM 9.7 MG/DL (8.5-10.1)
[2022-05-03 14:53] LABS: TOTAL PROTEIN 7.6 GM/DL (6.4-8.2)
[2022-05-03 14:54] LABS: BILIRUBIN,TOTAL 0.3 MG/DL (0.1-1.0)
[2022-05-03 14:56] LABS: CREATININE SERUM 0.77 MG/DL (0.60-1.30)
[2022-05-03 15:03] LABS: LYMPHOCYTES % (MANUAL) 10 %; MONOCYTES % (MANUAL) 4 %; NEUTROPHILS % (MANUAL) 86 %; RBC MORPH NORMAL
--- NOTE | 2022-05-03 15:42 | Diagnostic Imaging Report ---
PROCEDURE: MRI lumbar spine. TECHNIQUE: Multiplanar, multisequence MRI of the lumbar spine was performed without contrast. INDICATION: Low back pain with saddle-type anesthesia. The study is correlated with CT lumbar 11/08/2013. No prior MR. FINDINGS: The lower thoracic cord and the conus appeared normal. There is a normal dispersal pattern of the nerves of the cauda equina. No intrathecal or epidural lesion found. The L5-S1 disc shows mild desiccation, slight stature loss and mild diffuse bulge but no focal herniation and it results in no stenosis. The remaining lumbar disks are well-hydrated and are nondisplaced with widely patent spinal canal, neural foramen and lateral recesses. No paravertebral mass, hemorrhage or fluid collection. No marrow edema. The pedicles and pars were intact. The ligamentous structures intact. IMPRESSION: Very mild disc desiccation and bulging of the L5-S1 disc without resultant stenosis. No acute intrathecal or epidural pathology. Normal alignment. No bony abnormality. Dictated by: Dictated on workstation # [id number]
[2022-05-03] MEDS ORDERED: OXYC1TAB11 PO (16:48)
[2022-05-03] MEDS ORDERED: SUCR1TAB36 PO (16:48)
[2022-05-03 16:54] VITALS: BP 148/99
== END 2022-05-03 16:53 | disposition home or self-care (01) ==
LOC: EDUNIT# 13:44 → ER 13:47
DX: M54.42 Lumbago with sciatica, left side (principal); E66.9 Obesity, unspecified; K21.9 Gastro-esophageal reflux disease without esophagitis; F17.210 Nicotine dependence, cigarettes, uncomplicated; Z68.41 Body mass index [BMI] 40.0-44.9, adult; Z28.310 Unvaccinated for COVID-19; Z79.899 Other long term (current) drug therapy
CPT/HCPCS: 36415; 72148; 80053; 82274; 83690; 85007; 85027

== ENCOUNTER 2022-09-24 17:32 | Emergency (ER) | payer OTHER ==
[~2022-09-24] VITALS: Ht 177 cm; Wt 121.4 kg
[~2022-09-24 17:32] MED LIST changes: +OXYC1TAB11 PO; +SUCR1TAB36 PO
[2022-09-24 19:10] LABS: BASOPHILS # (AUTO) 0.1 10^3/uL (0.0-0.1); BASOPHILS % (AUTO) 0 % (0-10); EOSINOPHILS # (AUTO) 0.2 10^3/uL (0.0-0.3); EOSINOPHILS % (AUTO) 1 % (0-10); HEMATOCRIT 42 % (35-52); HEMOGLOBIN 13.3 g/dL (11.5-16.0); LYMPHOCYTES # (AUTO) 3.2 10^3/uL (1.0-4.0); LYMPHOCYTES % (AUTO) 24 % (12-44); MEAN CORPUSCULAR HEMOGLOBIN 29 pg (25-34); MEAN CORPUSCULAR HGB CONC 32 g/dL (32-36); MEAN CORPUSCULAR VOLUME 90 fL (80-99); MEAN PLATELET VOLUME 9.5 fL (9.0-12.2); MONOCYTES # (AUTO) 0.8 10^3/uL (0.0-1.0); MONOCYTES % (AUTO) 6 % (0-12); NEUTROPHILS # (AUTO) 9.2 10^3/uL (1.8-7.8); NEUTROPHILS % (AUTO) 68 % (42-75); PLATELET COUNT 485 10^3/uL (130-400); WHITE BLOOD COUNT 13.4 10^3/uL (4.3-11.0)
[2022-09-24 19:14] LABS: ALBUMIN 4.3 GM/DL (3.2-4.5)
[2022-09-24 19:15] LABS: CALCIUM 9.7 MG/DL (8.5-10.1)
[2022-09-24 19:17] LABS: TOTAL PROTEIN 7.5 GM/DL (6.4-8.2)
[2022-09-24 19:18] LABS: BILIRUBIN,TOTAL 0.5 MG/DL (0.1-1.0)
[2022-09-24 19:20] LABS: CREATININE SERUM 0.91 MG/DL (0.60-1.30)
[2022-09-24 19:30] LABS: BILIRUBIN,URINE 1+ (NEGATIVE); CLARITY,URINE CLEAR; COLOR,URINE YELLOW; GLUCOSE, URINE (UA) NEGATIVE (NEGATIVE); KETONES,URINE TRACE (NEGATIVE); LEUKOCYTE ESTERASE ,URINE NEGATIVE (NEGATIVE); NITRITE,URINE NEGATIVE (NEGATIVE); PROTEIN,URINE TRACE (NEGATIVE)
[2022-09-24 19:41] LABS: BACTERIA,URINE NEGATIVE /HPF; WBC,URINE 0-2 /HPF
--- NOTE | 2022-09-24 20:04 | Diagnostic Imaging Report ---
PROCEDURE: CT head without contrast. TECHNIQUE: Multiple contiguous axial images were obtained through the brain without the use of intravenous contrast. Auto Exposure Controls were utilized during the CT exam to meet ALARA standards for radiation dose reduction. INDICATION: Syncope and head injury CT HEAD: CT images of the head were obtained. FINDINGS: Ventricles and sulci are within normal limits for size. There is no intracranial hemorrhage identified. There is no abnormal mass effect or shift of midline structures. IMPRESSION: Unremarkable CT of the head. Dictated by: Dictated on workstation # [id number]
--- NOTE | 2022-09-24 20:14 | Diagnostic Imaging Report ---
PROCEDURE: CT maxillofacial without contrast. TECHNIQUE: Multiple contiguous axial images were obtained through the facial bones without the use of intravenous contrast. Auto Exposure Controls were utilized during the CT exam to meet ALARA standards for radiation dose reduction. INDICATION: Face injury with contusion after syncope. Patient also reports headache. There is no focal hematoma identified. Globes are intact. Facial bones reveal no acute fracture and there is no paranasal sinus air-fluid level. There is no remaining maxillary teeth. No focal inflammation is seen. IMPRESSION: No acute maxillofacial abnormality is identified. Dictated by: Dictated on workstation # [id number]
[2022-09-24] MEDS ORDERED: PROCHLORPERAZINE 10 MG/2ML INJ (COMPAZINE) IV ONE (20:30)
[2022-09-24] MEDS ORDERED: KETOROLAC 30 MG/ML VIAL IVP ONE (20:30)
[2022-09-24] MEDS ORDERED: PROC-1 PO (20:31)
[2022-09-24] MEDS ORDERED: KETO10TA PO (20:31)
--- NOTE | 2022-09-24 20:31 | ED Syncope ---
General Chief Complaint: Dizziness/Syncope Stated Complaint: FALL, HEADACHE, FACE PAIN Nursing Triage Note: ARRIVED VIA AMB TO TRIAGE. STATES AT 0330 SHE WOKE UP HUNGRY AND ATE SOMETHING. AFTER EATING SHE STARTED HAVING ABD PAIN. WENT TO THE BATHROOM AND WOKE UP ON THE FLOOR. PT THINKS SHE HIT THE LEFT SIDE OF HER FACE DUE TO PAIN AND BRUISING. PT'S THINKS SHE PASSED OUT AGAIN IN THE CHAIR. PT COMPLAINS OF A HEADACHE. WAS SEEN AT [facility] AND SENT HERE FOR FURTHER EVAL. Allergies and Home Medications Allergies Coded Allergies: No Known Drug Allergies (Unverified , 09/28/21) Patient Home Medication List Acetaminophen (Tylenol Extra Strength) 500 Mg Tablet, 500 MG PO Q6H PRN for PAIN, (Reported) Entered as Reported by: MARK HAIDER on 09/27/21 0949 Cephalexin (Cephalexin) 500 Mg Tablet, 500 MG PO TID, (Reported) Entered as Reported by: MARK HAIDRE on 09/27/21 0949 Docusate Sodium (Colace) 100 Mg Capsule, 100 MG PO DAILY Prescribed by: KIAH LEON on 09/28/21 1237 Hydrocodone/Acetaminophen (Hydrocodone-Acetamin 5-325 mg) 1 Each Tablet, 1 EACH PO Q4H PRN for PAIN-MODERATE (5-7) Prescribed by: KIAH LEON on 10/04/21 1443 Hydrocodone/Acetaminophen (Hydrocodone-Acetamin 5-325 mg) 5 Mg-325 Mg Tablet, 1 TAB PO Q6H PRN for PAIN-MODERATE (5-7) Prescribed by: BRE MARTINEZ on 04/29/22 0810 Ibuprofen (Ibuprofen) 600 Mg Tablet, 600 MG PO Q6H PRN for PAIN-MILD, (Reported) Entered as Reported by: MARK HAIDER on 09/27/21 0949 Ketorolac Tromethamine (Ketorolac Tromethamine) 10 Mg Tablet, 10 MG PO Q6H PRN for PAIN-SEE DOSE INSTRUCTIONS Prescribed by: Neo Aguilar on 09/24/22 203 Methocarbamol (Methocarbamol) 500 Mg Tablet, 1,000 MG PO Q6-8HR Prescribed by: BRE MARTINEZ on 04/29/22 0810 Oxycodone HCl/Acetaminophen (Oxycodone-Acetaminophen 5-325) 5 Mg-325 Mg Tablet, 1 EACH PO Q6H PRN for PAIN-MODERATE Prescribed by: BRE MARTINEZ on 05/03/22 1648 Prednisone (Prednisone) 10 Mg Tab.ds.pk, 10 MG PO DAILY Prescribed by: BRE MARTINEZ on 04/29/22 0810 Prochlorperazine Maleate (Compazine) 10 Mg Tablet, 10 MG PO Q8H Prescribed by: Neo Aguilar on 09/24/222030 Sucralfate (Carafate) 1 Gram Tablet, 1 GM PO Q6H Prescribed by: BRE MARTINEZ on 05/03/22 164 Past Ugegkxv-Vqpsgf-Jjwolf Hx Patient Social History Tobacco Use?: Yes Smoking Status: Current Everyday Smoker Substance use?: No Alcohol Use?: No Immunizations Up To Date Tetanus Booster (TDap): Unknown PED Vaccines UTD: Yes First/Initial COVID19 Vaccinat: NO Seasonal Allergies Seasonal Allergies: Yes Past Medical History Surgeries: Yes (6 laproscopic surg, lymphnodectomy, LT ANKLE) Abdominal, Appendectomy, Gallbladder, Orthopedic, Tonsillectomy Respiratory: Yes (MILD SEASONALLY INDUCED ASTHMA) Asthma, Pneumonia Currently Using CPAP: No Currently Using BIPAP: No Cardiac: No Neurological: No Reproductive Disorders: No Female Reproductive Disorders: Menstrual Problems, Endometriosis, Polycystic Ovarian Dis Sexually Transmitted Disease: No HIV/AIDS: No Genitourinary: Yes Kidney Infection, UTI-Chronic Gastrointestinal: Yes (OCC REFLUX) Gastroesophageal Reflux, Gall Bladder Disease Musculoskeletal: Yes (left ankle/foot injuries) Chronic Back Pain Endocrine: No HEENT: No Loss of Vision: Denies Hearing Impairment: Denies Cancer: No Psychosocial: Yes Anxiety, PTSD, Depression Integumentary: No Blood Disorders: No Adverse Reaction/Blood Tranf: No (N/A) Family Medical History Alcoholism G8 BROTHER Asthma G8 BROTHER Diabetes mellitus 19 FATHER G8 BROTHER Drug abuse G8 BROTHER G8 BROTHER Hypercholesterolemia 19 FATHER Hypertension 19 FATHER G8 BROTHER Thyroid disease 19 MOTHER No Family History of: AIDS Abdominal aortic aneurysm [place]'s disease Alzheimer's disease Aphasia Arthritis Cancer of mouth Cardiovascular disease Cataracts Colon cancer Completed stroke Congenital disease Congenital heart disease Coronary thrombosis Cystic fibrosis Deafness or hearing loss Dementia Dysphasia Fibrocystic disease of breast Gastroenteritis Glaucoma Headache disorder Infertility Kidney disease Myocardial infarction Neoplasm Not obtainable due to adoption Osteoporosis Parkinson's disease Prostate cancer Psychosocial problem Respiratory disorder Seizure disorder Severe allergy Tuberculosis Visual disorder Physical Exam Vital Signs Vital Signs - First Documented 09/24/22 17:40 Temp 35.6 Pulse 82 Resp 16 B/P (MAP) 146/92 (110) Pulse Ox 99 O2 Delivery Room Air Capillary Refill : Less Than 3 Seconds Height, Weight, BMI Height: 5'10.50" Weight: 232lbs. 0.6oz. [id number]; 38.00 BMI Method:Stated Progress/Results/Core Measures Results/Orders Lab Results Laboratory Tests Test 09/24/22 18:52 09/24/22 19:05 Range/Units White Blood Count 13.4 H 4.3-11.0 10^3/uL Red Blood Count 4.62 3.80-5.11 10^6/uL Hemoglobin 13.3 11.5-16.0 g/dL Hematocrit 42 35-52 % Mean Corpuscular Volume 90 80-99 fL Mean Corpuscular Hemoglobin 29 25-34 pg Mean Corpuscular Hemoglobin Concent 32 32-36 g/dL Red Cell Distribution Width 13.5 10.0-14.5 % Platelet Count 485 H 130-400 10^3/uL Mean Platelet Volume 9.5 9.0-12.2 fL Immature Granulocyte % (Auto) 0 % Neutrophils (%) (Auto) 68 42-75 % Lymphocytes (%) (Auto) 24 12-44 % Monocytes (%) (Auto) 6 0-12 % Eosinophils (%) (Auto) 1 0-10 % Basophils (%) (Auto) 0 0-10 % Neutrophils # (Auto) 9.2 H 1.8-7.8 10^3/uL Lymphocytes # (Auto) 3.2 1.0-4.0 10^3/uL Monocytes # (Auto) 0.8 0.0-1.0 10^3/uL Eosinophils # (Auto) 0.2 0.0-0.3 10^3/uL Basophils # (Auto) 0.1 0.0-0.1 10^3/uL Immature Granulocyte # (Auto) 0.0 0.0-0.1 10^3/uL Sodium Level 139 135-145 MMOL/L Potassium Level 4.0 3.6-5.0 MMOL/L Chloride Level 104 98-107 MMOL/L Carbon Dioxide Level 24 21-32 MMOL/L Anion Gap 11 5-14 MMOL/L Blood Urea Nitrogen 8 7-18 MG/DL Creatinine 0.91 0.60-1.30 MG/DL Estimat Glomerular Filtration Rate 86 BUN/Creatinine Ratio 9 Glucose Level 91 70-105 MG/DL Calcium Level 9.7 8.5-10.1 MG/DL Corrected Calcium 9.5 8.5-10.1 MG/DL Total Bilirubin 0.5 0.1-1.0 MG/DL Aspartate Amino Transf (AST/SGOT) 18 5-34 U/L Alanine Aminotransferase (ALT/SGPT) 22 0-55 U/L Alkaline Phosphatase 67 40-136 U/L Total Protein 7.5 6.4-8.2 GM/DL Albumin 4.3 3.2-4.5 GM/DL Urine Color YELLOW Urine Clarity CLEAR Urine pH 6.0 5-9 Urine Specific [place] >=1.030 1.016-1.022 Urine Protein TRACE H NEGATIVE Urine Glucose (UA) NEGATIVE NEGATIVE Urine Ketones TRACE H NEGATIVE Urine Nitrite NEGATIVE NEGATIVE Urine Bilirubin 1+ H NEGATIVE Urine Urobilinogen 1.0 < = 1.0 MG/DL Urine Leukocyte Esterase NEGATIVE NEGATIVE Urine RBC (Auto) NEGATIVE NEGATIVE Urine RBC 5-10 H /HPF Urine WBC 0-2 /HPF Urine Squamous Epithelial Cells 10-25 H /HPF Urine Renal Epithelial Cells NONE /HPF Urine Crystals NONE /LPF Urine Bacteria NEGATIVE /HPF Urine Casts NONE /LPF Urine Mucus LARGE H /LPF Urine Culture Indicated NO Urine Test NEGATIVE NEGATIVE My Orders Orders - NEO AGUILAR [employer] MANAGER Cbc With Automated Diff (09/24/22 18:59) Comprehensive Metabolic Panel (09/24/22 18:59) Ekg Tracing (09/24/22 18:59) Iv/Invasive Line Insertion .IV INSERT (09/24/22 18:59) Ct Maxillofacial Wo (09/24/22 18:59) Ct Head Wo (09/24/22 18:59) Urinalysis (09/24/22 19:08) Hcg,Qualitative Urine (09/24/22 19:08) Ketorolac Injection (Toradol Injection) (09/24/22 20:30) Prochlorperazine Injection (Compazine In (09/24/22 20:30) Vital Signs/I&O 09/24/22 17:40 Temp 35.6 Pulse 82 Resp 16 B/P (MAP) 146/92 (110) Pulse Ox 99 O2 Delivery Room Air Blood Pressure Mean: 110 EKG : EKG Time: 19:13 Rate: 62 Rhythm: Normal Sinus Intervals: Normal ECG Impression: Normal Departure Impression Primary Impression: Syncope Qualified Codes: R55 - Syncope and collapse Additional Impression: Head injury Qualified Codes: S09.90XA - Unspecified injury of head, initial encounter Disposition: HOME, SELF-CARE Condition: Improved Departure-Patient Inst. Decision time for Depature: 20:25 Referrals: ABDIRASHID LOPEZ DO (PCP/Family) Primary Care Physician Patient Instructions: Syncope (Fainting) (DC) Scripts Prochlorperazine Maleate (Compazine) 10 Mg Tablet 10 MG PO Q8H for 7 Days, #15 TAB 0 Refills Prov: NEO AGUILAR APRN 09/24/22 Ketorolac Tromethamine (Ketorolac Tromethamine) 10 Mg Tablet 10 MG PO Q6H PRN for PAIN-SEE DOSE INSTRUCTIONS for 5 Days, #15 TAB 0 Refills Prov: NEO AGUILAR APRN 09/24/22 NEO AGUILAR APRN Sep 24, 2022 20:31
[2022-09-24 22:53] VITALS: BP 130/84
== END 2022-09-24 20:46 | disposition home or self-care (01) ==
LOC: EDUNIT# 17:32 → ER 17:34
DX: S09.90XA Unspecified injury of head, initial encounter (principal); R55 Syncope and collapse; F17.200 Nicotine dependence, unspecified, uncomplicated; Z28.310 Unvaccinated for COVID-19; W19.XXXA Unspecified fall, initial encounter
CPT/HCPCS: 36415; 70450; 70486; 80053; 81000; 84703; 85025; 93005

== ENCOUNTER 2023-07-30 13:33 | Emergency (ER) | payer SELFPAY ==
[~2023-07-30] VITALS: Ht 177 cm; Wt 127.0 kg
[~2023-07-30 13:33] MED LIST changes: +KETO10TA PO; +PROC-1 PO
[2023-07-30 13:42] VITALS: BP 152/117
--- NOTE | 2023-07-30 13:49 | ED Integumentary General ---
General Chief Complaint: Skin/Wound Problems Stated Complaint: CYST ON TAILBONE Source: patient Exam Limitations: no limitations (LIANE ACEVEDO APRN) History of Present Illness Date Seen by Provider: Jul 30, 2023 Time Seen by Provider: 13:42 Initial Comments 33-year-old female presents to the ER with complaint of an abscess to her tailbone. States she has been present for 3 days. Patient has a history of hidradenitis suppurativa. Reports she has had an abscess in this location before. Denies any fevers. (LIANE ACEVEDO APRN) Allergies and Home Medications Allergies Coded Allergies: No Known Drug Allergies (Unverified , 09/28/21) Patient Home Medication List Home Medication List Reviewed: Yes (LIANE ACEVEDO APRN) Acetaminophen (Tylenol Extra Strength) 500 Mg Tablet, 500 MG PO Q6H PRN for PAIN, (Reported) Entered as Reported by: MARK HAIDER on 09/27/21 0949 Cephalexin (Cephalexin) 500 Mg Tablet, 500 MG PO TID, (Reported) Entered as Reported by: MARK HAIDER on 09/27/21 0949 Clindamycin HCl (Clindamycin HCl) 150 Mg Capsule, 450 MG PO TID Prescribed by: Liane Ledezma on 07/30/23 1410 Docusate Sodium (Colace) 100 Mg Capsule, 100 MG PO DAILY Prescribed by: KIAH LEON on 09/28/21 1237 Hydrocodone/Acetaminophen (Hydrocodone-Acetamin 5-325 mg) 1 Each Tablet, 1 EACH PO Q4H PRN for PAIN-MODERATE (5-7) Prescribed by: KIAH LEON on 10/04/21 1443 Hydrocodone/Acetaminophen (Hydrocodone-Acetamin 5-325 mg) 5 Mg-325 Mg Tablet, 1 TAB PO Q6H PRN for PAIN-MODERATE (5-7) Prescribed by: BRE MARTINEZ on 04/29/22 0810 Ibuprofen (Ibuprofen) 600 Mg Tablet, 600 MG PO Q6H PRN for PAIN-MILD, (Reported) Entered as Reported by: MARK HAIDER on 09/27/21 0949 Ketorolac Tromethamine (Ketorolac Tromethamine) 10 Mg Tablet, 10 MG PO Q6H PRN for PAIN-SEE DOSE INSTRUCTIONS Prescribed by: Neo Aguilar on 09/24/222030 Methocarbamol (Methocarbamol) 500 Mg Tablet, 1,000 MG PO Q6-8HR Prescribed by: BRE MARTINEZ on 04/29/22 08 Oxycodone HCl/Acetaminophen (Oxycodone-Acetaminophen 5-325) 5 Mg-325 Mg Tablet, 1 EACH PO Q6H PRN for PAIN-MODERATE Prescribed by: BRE MARTINEZ on 05/03/221647 Prednisone (Prednisone) 10 Mg Tab.ds.pk, 10 MG PO DAILY Prescribed by: BRE MARTINEZ on 04/29/22809 Prochlorperazine Maleate (Compazine) 10 Mg Tablet, 10 MG PO Q8H Prescribed by: Neo Aguilar on 09/24/222030 Sucralfate (Carafate) 1 Gram Tablet, 1 GM PO Q6H Prescribed by: BRE MARTINEZ on 05/03/221647 Review of Systems Review of Systems Constitutional: see HPI (LIANE ACEVEDO APRN) Past Qethfji-Juyyoc-Pteflu Hx Immunizations Up To Date Tetanus Booster (TDap): Unknown PED Vaccines UTD: Yes First/Initial COVID19 Vaccinat: NO (LIANE ACEVEDO APRN) Seasonal Allergies Seasonal Allergies: Yes (LIANE ACEVEDO APRN) Past Medical History Surgeries: Yes (6 laproscopic surg, lymphnodectomy, LT ANKLE) Abdominal, Appendectomy, Gallbladder, Orthopedic, Tonsillectomy Respiratory: Yes (MILD SEASONALLY INDUCED ASTHMA) Asthma, Pneumonia Currently Using CPAP: No Currently Using BIPAP: No Cardiac: No Neurological: No Reproductive Disorders: No Female Reproductive Disorders: Menstrual Problems, Endometriosis, Polycystic Ovarian Dis Sexually Transmitted Disease: No HIV/AIDS: No Genitourinary: Yes Kidney Infection, UTI-Chronic Gastrointestinal: Yes (OCC REFLUX) Gastroesophageal Reflux, Gall Bladder Disease Musculoskeletal: Yes (left ankle/foot injuries) Chronic Back Pain Endocrine: No HEENT: No Loss of Vision: Denies Hearing Impairment: Denies Cancer: No Psychosocial: Yes Anxiety, PTSD, Depression Integumentary: No Blood Disorders: No Adverse Reaction/Blood Tranf: No (N/A) (LIANE ACEVEDO APRN) Family Medical History Alcoholism G8 BROTHER Asthma G8 BROTHER Diabetes mellitus 19 FATHER G8 BROTHER Drug abuse G8 BROTHER G8 BROTHER Hypercholesterolemia 19 FATHER Hypertension 19 FATHER G8 BROTHER Thyroid disease 19 MOTHER No Family History of: AIDS Abdominal aortic aneurysm [place]'s disease Alzheimer's disease Aphasia Arthritis Cancer of mouth Cardiovascular disease Cataracts Colon cancer Completed stroke Congenital disease Congenital heart disease Coronary thrombosis Cystic fibrosis Deafness or hearing loss Dementia Dysphasia Fibrocystic disease of breast Gastroenteritis Glaucoma Headache disorder Infertility Kidney disease Myocardial infarction Neoplasm Not obtainable due to adoption Osteoporosis Parkinson's disease Prostate cancer Psychosocial problem Respiratory disorder Seizure disorder Severe allergy Tuberculosis Visual disorder Physical Exam Vital Signs Vital Signs - First Documented 07/30/23 13:42 Temp 36.9 Pulse 115 Resp 16 B/P (MAP) 152/117 (129) Pulse Ox 98 O2 Delivery Room Air (ANTONI LACKEY MD) Vital Signs Capillary Refill : (LIANE ACEVEDO APRN) General Appearance: WD/WN, no apparent distress Neck: supple, normal inspection Cardiovascular: regular rate, rhythm Respiratory: lungs clear, normal breath sounds, no respiratory distress, no accessory muscle use Extremities: normal range of motion, normal inspection Neurologic/Psychiatric: alert, normal mood/affect Skin: normal color, warm/dry Skin Problem Location: other (Coccyx) Skin Problem Character: abscess (Area of fluctuation surrounded by erythema and induration), erythema (Area of induration) (LIANE ACEVEDO APRN) Procedures/Interventions I&D : Site: coccyx Blade Size: 11 I & D Procedure: betadine prep Progress Area cleaned. Anesthetized with 1% lidocaine with epinephrine. Incised with 11 blade, linear incision made. Expression of purulent material. No packing placed. Gauze dressing applied. (LIANE ACEVEDO APRN) Progress/Results/Core Measures Results/Orders Vital Signs/I&O 07/30/23 13:42 Temp 36.9 Pulse 115 Resp 16 B/P (MAP) 152/117 (129) Pulse Ox 98 O2 Delivery Room Air (ANTONI LACKEY MD) Progress Progress Note : Progress Note Patient seen and evaluated, resting in bed, mild distress. I&D completed of ab scess, see procedure note. Will discharge with prescription for clindamycin. Discharge instructions and return precautions provided. (LIANE ACEVEDO APRN) Departure Impression Primary Impression: Abscess Disposition: 01 HOME, SELF-CARE Condition: Stable Departure-Patient Inst. Decision time for Depature: 14:09 (LIANE ACEVEDO APRN) Referrals: ABDIRASHID LOPEZ DO (PCP/Family) Primary Care Physician Patient Instructions: Abscess Incision and Drainage (DC) Add. Discharge Instructions: Complete full course of antibiotic as directed. Follow-up with your primary care provider. Return for any new, concerning, or worsening symptoms. All discharge instructions reviewed with patient and/or family. Voiced understanding. Scripts Clindamycin HCl (Clindamycin HCl) 150 Mg Capsule 450 MG PO TID for 7 Days, #63 CAP 0 Refills Prov: LIANE ACEVEDO APRN 07/30/23 ATTENDING PHYSICIAN NOTE: I was physically present as attending physician in the emergency department during the care of this patient, but I was not directly involved in the decision making or delivery of care for this patient. (ANTONI LACKEY MD) LIANE ACEVEDO APRN Jul 30, 2023 13:49 ANTONI LACKEY MD Jul 31, 2023 06:31
[2023-07-30] MEDS ORDERED: LIDOCAINE 1% INJ 10 ML VIAL INJ ONE (14:00)
[2023-07-30] MEDS ORDERED: CLIN150C20 PO (14:10)
== END 2023-07-30 14:12 | disposition home or self-care (01) ==
LOC: EDUNIT# 13:33 → ER 13:35
DX: L05.01 Pilonidal cyst with abscess (principal)
CPT/HCPCS: 87070; 87077; 87205